=== PATIENT | female | born 1985 | race African-American/Black ===

== ENCOUNTER 2023-01-29 12:28 | Emergency (ER) | payer OTHER, SELFPAY ==
[2023-01-29 12:36] VITALS: BP 138/85; PULSE 115; RESP 18; TEMP 36.4; O2SAT 100
--- NOTE | 2023-01-29 12:52 | ECG_ITS ---
Measurements Intervals [place] Rate: 99 P: 50 SD: 152 QRS: 52 QRSD: 93 T: 23 QT: 351 QTc: 452 Interpretive Statements SINUS RHYTHM NORMAL ELECTROCARDIOGRAM NO PREVIOUS ECG AVAILABLE FOR COMPARISON Electronically Signed On 01-29-2023 15:24:05 [employer] by Nadeem Norris M.D.
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
--- NOTE | 2023-01-29 13:16 | PC.NURSE ---
Pt mother at bedside after pt approved of the visitor
[2023-01-29 13:27] LABS: Appearance Urine Clear (Clear); Bilirubin Urine Negative (Negative); Blood Urine Negative (Negative); Color Urine Yellow (Yellow); Glucose Urine UA Negative (Negative); Ketones Urine Negative (Negative); Leukocyte Esterase Ur Negative LEU/UL (Negative); Nitrate Urine Negative (Negative); Protein Urine Negative (Negative); Specific Grav Ur 1.016 (1.001-1.035); Urobilinogen Urine 0.2 mg/dL (<2.0); pH Urine 5.5 (5.0-9.0)
[2023-01-29 13:31] LABS: Add Urine Microscopic? NO
[2023-01-29 13:31] LABS: Basophils Percent Auto 0.5 % (0.2-1.2); Eosinophils Absolute Auto 0.1 K/mm3 (0-0.3); Eosinophils Percent Auto 3.2 % (0-4.4); Hematocrit 38.1 % (37.0-47.0); Hemoglobin 12.2 g/dL (12.0-15.0); Lymphocytes Absolute Auto 1.75 K/mm3 (0.9-3.2); Lymphocytes Percent Auto 46.1 % (18.3-44.2); Mean Corpuscular Hemoglobin 28.6 pg (26-34); Mean Corpuscular Volume 89.4 fl (80-100); Mean Platelet Volume 10.5 fl (7.4-10.4); Monocytes Absolute Auto 0.3 K/mm3 (0.1-0.6); Monocytes Percent Auto 8.4 % (2.6-8.5); Neutrophils Absolute Auto 1.6 K/mm3 (1.3-6.7); Neutrophils Percent Auto 41.8 % (45.5-73.1); Platelet Count Result 240 k/mm3 (150-375); Red Blood Count 4.26 M/mm3 (4.2-5.4); Red Cell Distribution Width 12.8 % (11.5-14.5); White Blood Count 3.8 K/mm3 (4.5-10.0)
[2023-01-29 13:36] LABS: Acetaminophen < 10 ug/mL (10-30); Ethanol 10 mg/dL (<10); Salicylate < 1.0 mg/dL (2-20)
[2023-01-29 13:37] LABS: Alanine Aminotransferase 12 U/L (6-35); Albumin Level 4.1 g/dL (3.5-5.1); Alkaline Phosphatase 54 U/L (38-126); Anion Gap 9 mmol/L (8-16); Aspartate Amino Transferase 25 U/L (14-36); Bilirubin,Total 0.3 mg/dL (0.2-1.3); Blood Urea Nitrogen 10 mg/dL (7-17); Calcium 9.1 mg/dL (8.4-10.2); Carbon Dioxide 25 mmol/L (22-30); Chloride 106 mmol/L (98-107); Estimated Glomerular Filt Rate > 60; Glucose 94 mg/dL (65-110); Potassium 3.6 mmol/L (3.4-5.0); Sodium 140 mmol/L (137-145)
[2023-01-29 13:46] LABS: Amphetamine Screen Urine Negative (Negative); Barbiturate Screen Urine Negative (Negative); Benzodiazepines Screen Urine Positive (Negative); Cannabinoid Screen Urine Negative (Negative); Methadone Screen Urine Negative (Negative); Opiate Screen Urine Positive (Negative); Phencyclidine Screen Urine Negative (Negative)
[2023-01-29 14:10] LABS: Influenza A QL RT-PCR Negative (Negative); Influenza B QL RT-PCR Negative (Negative); RSV RNA, RT-PCR Negative (Negative); SARS-CoV-2 RNA PCR Negative (Negative)
[2023-01-29 15:06] LABS: Cocaine Screen Urine Negative (Negative)
--- NOTE | 2023-01-29 16:00 | PC.NURSE ---
Donaldo with Poison control was contacted.
--- NOTE | 2023-01-29 16:25 | PC.NURSE ---
pt and mother angry about delay in Crisis arriving. quite argumentative, unwilling to listen. pt never stated that she was suicidal or having thoughts of self harm. both mother and pt gave ultimatum, that they would walk out in 10 mins if Crisis were not here
--- NOTE | 2023-01-29 16:25 | PC.NURSE ---
Pt out in hallway yelling at staff to receive her belongings and let her leave. This RN was able to redirect pt back into room and inform her of our protocol. Pt states she did not take any medicines, has no thoughts of SI, and did not call her sister this morning. made aware.
--- NOTE | 2023-01-29 16:29 | PC.NURSE ---
Pt mother, Haley, called per pt request to come back to room.
--- NOTE | 2023-01-29 16:33 | PC.NURSE ---
Vickie with Crisis called back for information on pt for her evaluation from representatives. States they will be out shortly
--- NOTE | 2023-01-29 17:28 | PC.NURSE ---
both mother and pt seen ambulating out of ED, provider made aware. security calling [facility] to inform of elopement.
--- NOTE | 2023-01-29 18:02 | PC.NURSE ---
Crisis representatives created a safety plan with patient
[2023-01-29 18:14] VITALS: BP 123/88; PULSE 115; RESP 20; TEMP 37.1; O2SAT 100
[2023-02-02 08:22] LABS: Gabapentin <0.5 mcg/mL
== END 2023-01-29 18:30 | disposition home or self-care (01) ==
PROVIDERS: Emergency Provider Student in an Organized Health Care Education/Training Program
DX: F32.A Depression, unspecified (principal); Z11.52 Encounter for screening for COVID-19
CPT/HCPCS: 36415; 80053; 80171; 80307; 81003; 81025; 84443; 85025; 87637; 93005; 99284

== ENCOUNTER 2024-06-15 16:20 | Outpatient (CLI) | payer OTHER, SELFPAY ==
--- OUTSIDE RECORDS SUMMARY | 2024-06-15 16:27 | XMS_ITS | Data Portability ---
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 Plan of Treatment Reminders Order Date Submit Date Provider Last Modified By Organization Details Last Modified Time Details Appointments None record ed. Lab urinal ysis, dipsti ck 2023 024 [email or web address] In-Office Order, Internal Use Only DO Not Attach Compendium DO Not Attach Compendium, Do Not Delete/merge, [id number] 4 15:03:35 aneupl oidy risk and X & Y analys is, chromo some specif ic circul ating cell free (CCF) DNA, matern al serum 2023 024 TERRIE [facility], [address], [place], [address], 4 16:08:12 urinal ysis, dipsti ck 2023 024 [email or web address] In-Office Order, Internal Use Only DO Not Attach Compendium DO Not Attach Compendium, Do Not Delete/merge, [id number] 4 14:42:10 glucos e tolera nce test, post-5 0G, 1-hour 2023 024 TERRIE [facility], [address], [place], [address], 4 11:15:03 CBC w/ auto diff 2023 024 TERRIE [facility], [address], [place], [address], 4 11:15:03 cytolo gy report , thin prep, smear or scrapi ng, cervic al or vagina l 2023 024 TERRIE [facility], [address], [place], [address], 4 07:16:02 hemogl obin (Hb) electr ophore sis, blood 2023 024 [facility], [address] [facility], [place], [address], 4 14:59:45 HIV 1 + 2, meanin gful use set 2023 024 [email or web address] [facility], [address] [facility], [place], [address], 4 09:50:13 varice lla zoster virus IgG Ab, QN, IA, serum 2023 024 [facility], [address] [facility], [place], [address], 4 14:59:45 urinal ysis comple te, reflex cultur e 2023 024 [facility], [address] [facility], [place], [address], 4 14:59:46 drug screen , urine 2023 024 [facility], [address], [place], [address], 4 14:59:46 CFTR gene mutati ons found, blood or tissue 2023 024 [email or web address] [facility], [address] [facility], [place], [address], 4 09:50:01 Hepati tis C IgG Ab, qual, serum 2023 024 [facility], [address] [facility], [facility] [address], [place], [address], 4 14:59:46 prenat al panel 2023 024 [facility], [address] [facility], [facility] [address], [place], [address], 4 14:59:47 HCG, intact + beta subuni t, quant, serum or plasma 2023 024 TERRIE [facility], [address], [place], [address], 4 11:16:50 TSH, serum or plasma 2021 022 TERRIE [facility], [address] [facility], [facility] [address], [place], [address], 2 20:08:39 CBC 2021 022 TERRIE [facility], [address] [facility], [facility] [address], [place], [address], 2 20:08:38 lipid panel, serum 2021 022 TERRIE [facility], [address] [facility], [address], [place], [address], 2 20:08:37 CMP, serum or plasma 2021 022 TERRIE [facility], [address] [facility], [address], [place], [address], 2 20:08:38 HbA1c (hemog lobin A1c), blood 2021 TERRIE [facility], [address] [facility] [address], [place], [address], 20:08:40 Referral None record ed. Procedures None record ed. Surgeries None record ed. Imaging None record ed. Medication Orders Prenat al 28 mg iron-8 00 mcg tablet 2023 024 [email or web address] [facility] #[id number], [address], [place], [address], 4 13:59:28 gabape ntin 300 mg capsul e 2021 [facility] #[id number], [address], [place], [id number], 4 10:11:41 cyclob enzapr ine 10 mg tablet 2021 [facility] #[id number], [address], [place], [id number], 4 10:11:02 tramad ol 50 mg tablet 2021 [facility] #[id number], [address], [place], [id number], 10:58:48 Patient TargetsNo targets recorded. Patient Instructions Encounter Date Encounter Id Patient Instructions Last Modified By Organization Details Last Modified Time 11/11/2021 [id number] When You Want to Lose Weight: Care Instructions balbarcha Not available 11/11/2021 10:55:58 refused flu vaccine F/U with pain management balbarcha Not available 11/11/2021 10:54:15 12/30/2021 [id number] influenza (flu) vaccine: care instructions balbarcha Not available 12/30/2021 14:22:04 04/20/2023 [id number] After Age 35: Care Instructions [email or web address] Not available 04/20/2023 13:25:55 04/29/2023 [id number] A healthy lifestyle: care instructions thu Not available 04/29/2023 14:42:35 05/19/2023 [id number] After Age 35: Care Instructions thu Not available 05/19/2023 15:03:34 Reason for Referral None Reported. Results Created Date Observation Date Name Description Value Unit Range Abnormal Flag Note LastModifiedBy Organization Detail LastModifiedTime 10/21/1910/21/2021 BACTE RIAL VAGIN OSIS, RIANA atopobium vaginae Low - 0 score Not Available [facility] ([facility]) [address], [place], [address], 10/22/2021 07:12:52 10/21/1910/21/2021 BACTE RIAL VAGIN OSIS, RIANA bvab 2 Low - 0 score Not Available [facility] ([facility]) [address], [place], [address], 10/22/2021 07:12:52 10/21/1910/21/2021 BACTE RIAL VAGIN OSIS, RIANA megasphaera 1 Low - 0 score Calcu late total score by waldo kowalski the 3 indiv idual bacte rial vagin osis (BV) marke r score s toget her. Total score is inter prete d as follo ws: Total score 0-1: Indic ates the absen ce of BV. Total score 2: Indet ermin ate for BV. Addit ional clini alexys data shoul d be evalu ated to estab corbin a diagn osis. Total score 3-6: Indic ates the prese nce of BV. This test was devel oped and its perfo rmanc e krysten cteri stics deter mined by [facility]. It has not been clear ed or appro geraldine by the Food and Drug Admin istra tion. Not Available [facility] ([facility]) [address], [place], [address], 10/22/2021 07:12:52 10/21/19 10/21/2021 C ALBIC ANS + C GLABR KATRIN, RIANA trey albicans, RIANA Negati ve negati ve Not Available [facility] ([facility]) [address], [place], [address], 10/22/2021 07:12:53 10/21/19 22 10/21/2021 C ALBIC ANS + C GLABR KATRIN, RIANA trey glabrata, RIANA Negati ve negati ve Not Available [facility] ([facility]) [address], [place], [address], 10/22/2021 07:12:53 10/21/19 22 10/22/2021 URINE CULTU RE, ROUTI NE urine culture, routine Final report Not Available [facility] ([facility]) [address], [place], [address], 10/22/2021 07:12:54 10/21/19 22 10/22/2021 URINE CULTU RE, LUPEI NE result 1 No growth Not Available [facility] ([facility]) [address], [place], [address], 10/22/2021 07:12:54 10/21/19 22 10/20/2021 urina lysis , dipst ick Leukocytes Negati ve Not Available In-Office Order Internal Use Only DO Not Attach Compendium DO Not Attach Compendium, Do Not Delete/merge, [id number] 10/20/2021 15:28:06 10/21/19 22 10/20/2021 urina lysis , dipst ick Nitrite negati ve Not Available In-Office Order Internal Use Only DO Not Attach Compendium DO Not Attach Compendium, Do Not Delete/merge, [id number] 10/20/2021 15:28:10/21/19 22 10/20/2021 urina lysis , dipst ick Urobilinogen .2 Not Available In-Of fice Order Internal Use Only DO Not Attach Compendium DO Not Attach Compendium, Do Not Delete/merge, [id number] 10/20/2021 15:28:10/21/19 22 10/20/2021 urina lysis , dipst ick Protein Negati ve Not Available In-Office Order Internal Use Only DO Not Attach Compendium DO Not Attach Compendium, Do Not Delete/merge, 10/20/2021 15:28:10/21/19 22 10/20/2021 urina lysis , dipst ick pH 7.5 Not Available In-Office Order Internal Use Only DO Not Attach Compendium DO Not Attach Compendium, Do Not Delete/merge, 10/20/2021 15:28:10/21/19 22 10/20/2021 urina lysis , dipst ick Blood Non-He molyze d: Trace Not Available In-Office Order Internal Use Only DO Not Attach Compendium DO Not Attach Compendium, Do Not Delete/merge, 10/20/2021 15:28:10/21/19 22 10/20/2021 urina lysis , dipst ick Specific Lorane 1.025 Not Available In-Off ice Order Internal Use Only DO Not Attach Compendium DO Not Attach Compendium, Do Not Delete/merge, 10/20/2021 15:28:10/21/19 22 10/20/2021 urina lysis , dipst ick Ketone Trace Not Available In-Office Order Internal Use Only DO Not Attach Compendium DO Not Attach Compendium, Do Not Delete/merge, 10/20/2021 15:28:10/21/19 22 10/20/2021 urina lysis , dipst ick Bilirubin Negati ve Not Available In-Office Order Internal Use Only DO Not Attach Compendium DO Not Attach Compendium, Do Not Delete/merge, 10/20/2021 15:28:10/21/19 22 10/20/2021 urina lysis , dipst ick Glucose Negati ve Not Available In-Office Order Internal Use Only DO Not Attach Compendium DO Not Attach Compendium, Do Not Delete/merge, 10/20/2021 15:28:06 11/12/19 22 11/12/2021 LIPID PANEL cholesterol, total 173 mg/dL 100-19 9 Not Available [facility] [address] [place], [address], 11/14/2021 20:08:37 11/12/19 22 11/12/2021 LIPID PANEL triglyceride s 104 mg/dL 0-149 Not Available [facility] [address] [place], [address], 11/14/2021 20:08:37 11/12/19 22 11/12/2021 LIPID PANEL HDL cholesterol 44 mg/dL >39 Not Available [facility] [address] [place], [address], 11/14/2021 20:08:37 11/12/19 22 11/12/2021 LIPID PANEL VLDL cholesterol alexys 19 mg/dL 5-40 Not Available [facility] [address] [place], [address], 11/14/2021 20:08:37 11/12/19 22 11/12/2021 LIPID PANEL LDL chol calc ([facility]) 110 mg/dL 0-99 above high normal Not Available [facility] [address] [place], [address], 11/14/2021 20:08:37 11/12/19 22 11/12/2021 CBC+P LATEL ET+HE Mariano Moser WBC 5.2 x10e3 /uL 3.4-10 .8 Not Available [facility] [address] [place], [address], 11/14/2021 20:08:38 11/12/19 22 11/12/2021 CBC+P LATEL ET+HE Mariano HERNANDEZ W RBC 4.57 x10e6 /uL 3.77-5 .28 Not Available [facility] [address] [place], [address], 11/14/2021 20:08:38 11/12/19 22 11/12/2021 CBC+P LATEL ET+HE M REVIE W hemoglobin 13.5 g/dL 11.1-1 5.9 Not Available [facility] [address] [place], [address], 11/14/2021 20:08:38 11/12/19 22 11/12/2021 CBC+P LATEL ET+HE M REVIE W hematocrit 41.6 % 34.0-4 6.6 Not Available [facility] [address] [place], [address], 11/14/2021 20:08:38 11/12/19 22 11/12/2021 CBC+P LATEL ET+HE M REVIE W MCV 91 fL 79-97 Not Available [facility] [address] [place], [address], 11/14/2021 20:08:38 11/12/19 22 11/12/2021 CBC+P LATEL ET+HE M REVIE W MCH 29.5 pg 26.6-3 3.0 Not Available [facility] [address] [place], [address], 11/14/2021 20:08:38 11/12/19 22 11/12/2021 CBC+P LATEL ET+HE M REVIE W MCHC 32.5 g/dL 31.5-3 5.7 Not Available [facility] [address] [place], [address], 11/14/2021 20:08:38 11/12/19 22 11/12/2021 CBC+P LATEL ET+HE M REVIE W RDW 13.4 % 11.7-1 5.4 Not Available [facility] [address] [place], [address], 11/14/2021 20:08:38 11/12/19 22 11/12/2021 CBC+P LATEL ET+HE M REVIE W platelets 230 x10e3 /uL 150-45 0 Not Available [facility] [address] [place], [address], 11/14/2021 20:08:38 11/12/19 22 11/12/2021 CBC+P LATEL ET+HE M REVIE W neutrophils 54 % notest ab. Not Available [facility] [address] [place], [address], 11/14/2021 20:08:38 11/12/19 22 11/12/2021 CBC+P LATEL ET+HE M REVIE W lymphs 36 % notest ab. Not Available [facility] [address] [place], [address], 11/14/2021 20:08:38 11/12/19 22 11/12/2021 CBC+P LATEL ET+HE M REVIE W monocytes 9 % notest ab. Not Available [facility] [address] [place], [address], 11/14/2021 20:08:38 11/12/19 22 11/12/2021 CBC+P LATEL ET+HE M REVIE W eos 1 % notest ab. Not Available [facility] [address] [place], [address], 11/14/2021 20:08:38 11/12/19 22 11/12/2021 CBC+P LATEL ET+HE M REVIE W basos 0 % notest ab. Not Available [facility] [address] [place], [address], 11/14/2021 20:08:38 11/12/19 22 11/12/2021 CBC+P LATEL ET+HE M REVIE W neutrophils absolute 2.8 x10e3 /uL 1.4-7. 0 Not Available [facility] [address] [place], [address], 11/14/2021 20:08:38 11/12/19 22 11/12/2021 CBC+P LATEL ET+HE M REVIE W lymphs (absolute) 1.9 x10e3 /uL 0.7-3. 1 Not Available [facility] [address] [place], [address], 11/14/2021 20:08:38 11/12/19 22 11/12/2021 CBC+P LATEL ET+HE M REVIE W monocytes(ab solute) 0.5 x10e3 /uL 0.1-0. 9 Not Available [facility] [address] [place], [address], 11/14/2021 20:08:38 11/12/19 22 11/12/2021 CBC+P LATEL ET+HE M REVIE W eos (absolute value) 0.1 x10e3 /uL 0.0-0. 4 Not Available [facility] [address] [place], [address], 11/14/2021 20:08:38 11/12/19 22 11/12/2021 CBC+P LATEL ET+HE M REVKIRA W baso(absolut e) 0.0 x10e3 /uL 0.0-0. 2 Not Available [facility] [address] [place], [address], 11/14/2021 20:08:38 11/12/19 22 11/12/2021 CBC+P LATEL ET+HE M REVIE W RBC comment RBC's appear normal . Not Available [facility] [address] [place], [address], 11/14/2021 20:08:38 11/12/19 22 11/12/2021 CBC+P LATEL ET+HE M REVIE W platelet comment Adequa te adequa te Not Available [facility] [address] [place], [address], 11/14/2021 20:08:38 11/12/19 22 11/12/2021 COMP. METAB OLIC PANEL (14) glucose 91 mg/dL 70-99 Ple ase note refer ence inter jessa bonds e Not Available [facility] [address] [place], [address], 11/14/2021 20:08:38 11/12/19 22 11/12/2021 COMP. METAB OLIC PANEL (14) BUN 7 mg/dL 6-20 Not Available [facility] [address] [place], [address], 11/14/2021 20:08:38 11/12/19 22 11/12/2021 COMP. METAB OLIC PANEL (14) creatinine 0.89 mg/dL 0.57-1 .00 Not Available [facility] [address] [place], [address], 11/14/2021 20:08:38 11/12/19 22 11/12/2021 COMP. METAB OLIC PANEL (14) eGFR 86 mL/mi n/1.7 3 >59 Not Available [facility] [address] [place], [address], 11/14/2021 20:08:38 11/12/19 22 11/12/2021 COMP. METAB OLIC PANEL (14) BUN/creatini ne ratio 8 9-23 below low normal Not Available [facility] [address] [place], [address], 11/14/2021 20:08:38 11/12/19 22 11/12/2021 COMP. METAB OLIC PANEL (14) sodium 142 mmol/ L 134-14 4 Not Available [facility] [address] [place], [address], 11/14/2021 20:08:38 11/12/19 22 11/12/2021 COMP. METAB OLIC PANEL (14) potassium 4.1 mmol/ L 3.5-5. 2 Not Available [facility] [address] [place], [address], 11/14/2021 20:08:38 11/12/19 22 11/12/2021 COMP. METAB OLIC PANEL (14) chloride 105 mmol/ L 96-106 Not Available [facility] [address] [place], [address], 11/14/2021 20:08:38 11/12/19 22 11/12/2021 COMP. METAB OLIC PANEL (14) carbon dioxide, total 26 mmol/ L 20-29 Not Available [facility] [address] [place], [address], 11/14/2021 20:08:38 11/12/19 22 11/12/2021 COMP. METAB OLIC PANEL (14) calcium 9.0 mg/dL 8.7-10 .2 Not Available [facility] [address] [place], [address], 11/14/2021 20:08:38 11/12/19 22 11/12/2021 COMP. METAB OLIC PANEL (14) protein, total 6.6 g/dL 6.0-8. 5 Not Available [facility] [address] [place], [address], 11/14/2021 20:08:38 11/12/19 22 11/12/2021 COMP. METAB OLIC PANEL (14) albumin 4.2 g/dL 3.8-4. 8 Not Available [facility] [address] [place], [address], 11/14/2021 20:08:38 11/12/19 22 11/12/2021 COMP. METAB OLIC PANEL (14) globulin, total 2.4 g/dL 1.5-4. 5 Not Available [facility] [address] [place], [address], 11/14/2021 20:08:38 11/12/19 22 11/12/2021 COMP. METAB OLIC PANEL (14) A/G ratio 1.8 1.2-2. 2 Not Available [facility] [address] [place], [address], 11/14/2021 20:08:38 11/12/19 22 11/12/2021 COMP. METAB OLIC PANEL (14) bilirubin, total 0.4 mg/dL 0.0-1. 2 Not Available [facility] [address] [place], [address], 11/14/2021 20:08:38 11/12/19 22 11/12/2021 COMP. METAB OLIC PANEL (14) alkaline phosphatase 58 IU/L 44-121 Not Available [facility] [address] [place], [address], 11/14/2021 20:08:38 11/12/19 22 11/12/2021 COMP. METAB OLIC PANEL (14) AST (SGOT) 23 IU/L 0-40 Not Available [facility] [address] [place], [address], 11/14/2021 20:08:38 11/12/19 22 11/12/2021 COMP. METAB OLIC PANEL (14) ALT (SGPT) 8 IU/L 0-32 Not Available [facility] [address] [place], [address], 11/14/2021 20:08:38 11/12/19 22 11/14/2021 THYRO ID STIMU LATIN G HORMO NE TSH-icma 0.55 uu/mL Refer ence Range : Non-P regna nt Adult 0.450 -4.50 0 Pregn cathy First Trime ster 0.100 -4.00 0 Secon d Trime ster 0.200 -4.00 0 Third Trime ster 0.300 -4.50 0 Not Available [facility] [address] [facility], [place], [address], 11/14/2021 20:08:39 11/12/19 22 11/12/2021 HEMOG LOBIN A1C hemoglobin A1C 6.0 % 4.8-5. 6 above high normal Predi abete s: 5.7 - 6.4 Diabe sil: >6.4 Glyce jamir contr ol for adult s with diabe sil: <7.0 Not Available [facility] [address] [facility], [place], [address], 11/14/2021 20:08:40 04/20/19 24 04/21/2023 IGP,C TNGTV ,APT HPV,R FX16/ 18,45 HPV aptima Negati ve negati ve This nucle ic acid ampli ficat ion test detec ts fourt een high- risk HPV types (16,1 8,31, 33,35 ,39,4 5,51, 52,56 ,58,5 9,66, 68) witho ut diffe renti ation . Not Available [facility] ([facility]) [address] [place], [address], 04/23/2023 07:16:02 04/20/19 24 04/21/2023 IGP,C TNGTV ,APT HPV,R FX16/ 18,45 chlamydia, nuc. acid amp Negati ve negati ve Not Available [facility] ([facility]) [address] [place], [address], 04/23/2023 07:16:02 04/20/19 24 04/21/2023 IGP,C TNGTV ,APT HPV,R FX16/ 18,45 gonococcus, nuc. acid amp Negati ve negati ve Not Available [facility] ([facility]) [address] [place], [address], 04/23/2023 07:16:02 04/20/19 24 04/21/2023 IGP,C TNGTV ,APT HPV,R FX16/ 18,45 trich vag by RIANA Negati ve negati ve Not Available [facility] ([facility]) [address], [place], [address], 04/23/2023 07:16:02 04/20/19 24 04/22/2023 IGP,C TNGTV ,APT HPV,R FX16/ 18,45 diagnosis: Linn CASTRO FOR INTRA EPITH ELIAL LESIO N OR ALE CORTES . Not Available [facility] ([facility]) [address], [place], [address], 04/23/2023 07:16:02 04/20/19 24 04/22/2023 IGP,C TNGTV ,APT HPV,R FX16/ 18,45 specimen adequacy: Linn carmona Satis factatmie gabriel for evalu ation . Endoc ervic al and/o r squam ous metap lasti c cells (endo cervi alexys compo nent) are prese nt. Not Available [facility] ([facility]) [address], [place], [address], 04/23/2023 07:16:02 04/20/19 24 04/22/2023 IGP,C TNGTV ,APT HPV,R FX16/ 18,45 clinician provided ICD10: Linn carmona Z34.9 0 Z01.4 19 Not Available [facility] ([facility]) [address], [place], [address], 04/23/2023 07:16:02 04/20/19 24 04/22/2023 IGP,C TNGTV ,APT HPV,R FX16/ 18,45 performed by: Linn alan, Ramírez carmona (ASCP ) Not Available [facility] ([facility]) [address] [place], [address], 04/23/2023 07:16:02 03/12/20 24 04/22/2023 IGP,C TNGTV ,APT HPV,R FX16/ 18,45 . . Not Available [facility] ([facility]) [address], [place], [address], 04/23/2023 07:16:02 04/20/19 24 04/22/2023 IGP,C TNGTV ,APT HPV,R FX16/ 18,45 note: Commen t The Pap smear is a scree candace test desig kaylee to aid in the detec tion of chary ligna nt and malig nant condi tions of the uteri ne cervi x. It is not a diagn ostic proce dure and shoul d not be used as the sole means of detec ting cervi alexys cance r. Both false -posi tive and false -nega tive repor ts do occur . Not Available [facility] ([facility]) [address], [place], [address], 04/23/2023 07:16:02 04/20/19 24 04/22/2023 IGP,C TNGTV ,APT HPV,R FX16/ 18,45 test methodology: Commen t This liqui d based ThinP rep(R ) pap test was scree kaylee with the use of an image guide d jaqueline allen. Not Available [facility] ([facility] [address], [place], [address], 04/23/2023 07:16:02 04/20/19 24 04/22/2023 IGP,C TNGTV ,APT HPV,R FX16/ 18,45 HPV genotype reflex Commen t Crite storm not met, HPV Genot ype not perfo rmed. Not Available [facility] ([facility]) [address], [place], [address], 04/23/2023 07:16:02 04/20/19 24 04/21/2023 HGB FRACT IONAT ION CASCA DE HGB F 0.0 % 0.0-2. 0 Not Available [facility] ([facility]) [address], [place], [address], 05/27/2023 07:17:21 04/20/19 24 04/21/2023 HGB FRACT IONAT ION CASCA DE HGB A 97.4 % 96.4-9 8.8 Not Available [facility] ([facility]) [address], [place], [address], 05/27/2023 07:17:21 04/20/19 24 04/21/2023 HGB FRACT IONAT ION CASCA DE HGB A2 2.6 % 1.8-3. 2 Not Available [facility] ([facility]) [address], [place], [address], 05/27/2023 07:17:21 04/20/19 24 04/21/2023 HGB FRACT IONAT ION CASCA DE HGB S 0.0 % 0.0 Not Available [facility] ([facility]) [address], [place], [address], 05/27/2023 07:17:21 04/20/1904/21/2023 HGB FRACT IONAT ION CASCA DE interpretati on: Commen t Marisol l hemog lobin prese nt; no hemog lobin varia nt or beta thala ssemi a ident ified . Note: Alpha thala ssemi a may not be detec jimi by the Hgb Fract ionat ion [place] panel . If alpha thala ssemi a is suspe cted, [facility] offer s Alpha -Thal assem ia DNA Tiburcio sis (#[id number]). Not Available [facility] ([facility]) [address], [place], [address], 05/27/2023 07:17:21 04/20/19 24 04/21/2023 INTER PRETA TION: interpretati on: Commen t Not infec jimi with HCV unles s early or acute infec tion is suspe cted (whic h may be delay ed in an immun ocomp romis ed indiv idual ), or other evide nce exist s to indic ate HCV infec tion. Not Available [facility] ([facility]) [address], [place], [address], 05/27/2023 07:17:22 04/20/19 24 04/20/2023 PREGN CATHY, INITI AL SCREE N WBC 4.7 x10e3 /uL 3.4-10 .8 Not Available [facility] ([facility]) [address] [facility], [place], [address], 05/27/2023 07:17:23 04/20/19 24 04/20/2023 PREGN CATHY, INITI AL SCREE N RBC 4.10 x10e6 /uL 3.77-5 .28 Not Available [facility] ([facility]) [address] [facility], [place], [address], 05/27/2023 07:17:23 04/20/19 24 04/20/2023 PREGN CATHY, INITI AL SCREE N hemoglobin 11.8 g/dL 11.1-1 5.9 Not Available [facility] ([facility]) [address], [place], [address], 05/27/2023 07:17:23 04/20/19 24 04/20/2023 PREGN CATHY, INITI AL SCREE N hematocrit 36.1 % 34.0-4 6.6 Not Available [facility] ([facility] [address], [place], [address], 05/27/2023 07:17:23 04/20/19 24 04/20/2023 PREGN CATHY, INITI AL SCREE N MCV 88 fL 79-97 Not Available [facility] ([facility] [address] [place], [address], 05/27/2023 07:17:23 04/20/19 24 04/20/2023 PREGN CATHY, INITI AL SCREE N MCH 28.8 pg 26.6-3 3.0 Not Available [facility] ([facility] [address], [place], [address], 05/27/2023 07:17:23 04/20/19 24 04/20/2023 PREGN CATHY, INITI AL SCREE N MCHC 32.7 g/dL 31.5-3 5.7 Not Available [facility] ([facility] [address], [place], [address], 05/27/2023 07:17:23 04/20/19 24 04/20/2023 PREGN CATHY, INITI AL SCREE N RDW 15.9 % 11.7-1 5.4 above high normal Not Available [facility] ([facility] [address] [place], [address], 05/27/2023 07:17:23 04/20/19 24 04/20/2023 PREGN CATHY, INITI AL SCREE N platelets 260 x10e3 /uL 150-45 0 Not Available [facility] ([facility] [address] [place], [address], 05/27/2023 07:17:23 04/20/19 24 04/20/2023 PREGN CATHY, INITI AL SCREE N neutrophils 62 % notest ab. Not Available [facility] ([facility] [address] [place], [address], 05/27/2023 07:17:23 04/20/19 24 04/20/2023 PREGN CATHY, INITI AL SCREE N lymphs 29 % notest ab. Not Available [facility] ([facility]) [address] [place], [address], 05/27/2023 07:17:23 04/20/19 24 04/20/2023 PREGN CATHY, INITI AL SCREE N monocytes 8 % notest ab. Not Available [facility] ([facility]) [address] [facility], [place], [address], 05/27/2023 07:17:23 04/20/19 24 04/20/2023 PREGN CATHY, INITI AL SCREE N eos 1 % notest ab. Not Available [facility] ([facility]) [address] [facility], [place], [address], 05/27/2023 07:17:23 04/20/19 24 04/20/2023 PREGN CATHY, INITI AL SCREE N basos 0 % notest ab. Not Available [facility] ([facility]) [address] [facility], [place], [address], 05/27/2023 07:17:23 04/20/19 24 04/20/2023 PREGN CATHY, INITI AL SCREE N neutrophils (absolute) 2.9 x10e3 /uL 1.4-7. 0 Not Available [facility] ([facility]) [address] [place], [address], 05/27/2023 07:17:23 04/20/19 24 04/20/2023 PREGN CATHY, INITI AL SCREE N lymphs (absolute) 1.3 x10e3 /uL 0.7-3. 1 Not Available [facility] ([facility]) [address] [place], [address], 05/27/2023 07:17:23 04/20/19 24 04/20/2023 PREGN CATHY, INITI AL SCREE N monocytes(ab solute) 0.4 x10e3 /uL 0.1-0. 9 Not Available [facility] ([facility]) [address] [place], [address], 05/27/2023 07:17:23 04/20/19 24 04/20/2023 PREGN CATHY, INITI AL SCREE N eos (absolute) 0.0 x10e3 /uL 0.0-0. 4 Not Available [facility] ([facility]) [address] [facility], [place], [address], 05/27/2023 07:17:23 04/20/19 24 04/20/2023 PREGN CATHY, INITI AL SCREE N baso (absolute) 0.0 x10e3 /uL 0.0-0. 2 Not Available [facility] ([facility]) [address] [facility], [place], [address], 05/27/2023 07:17:23 04/20/19 24 04/20/2023 PREGN CATHY, INITI AL SCREE N immature granulocytes 0 % notest ab. Not Available [facility] ([facility]) [address] [facility], [place], [address], 05/27/2023 07:17:23 04/20/19 24 04/20/2023 PREGN CATHY, INITI AL SCREE N immature grans (abs) 0.0 x10e3 /uL 0.0-0. 1 Not Available [facility] ([facility]) [address] [facility], [place], [address], 05/27/2023 07:17:23 04/20/19 24 04/21/2023 PREGN CATHY, INITI AL SCREE N HBsAg screen Negati ve negati ve Not Available [facility] ([facility]) [address] [facility], [place], [address], 05/27/2023 07:17:23 04/20/19 24 04/21/2023 PREGN CATHY, INITI AL SCREE N HCV Ab Non Reacti ve nonrea ctive Not Available [facility] ([facility]) [address] [place], [address], 05/27/2023 07:17:23 04/20/19 24 04/21/2023 PREGN CATHY, INITI AL SCREE N RPR Non Reacti ve nonrea ctive Not Available [facility] ([facility]) [address] [place], [address], 05/27/2023 07:17:23 04/20/19 24 04/21/2023 PREGN CATHY, INITI AL SCREE N rubella antibodies, IgG 2.06 index immune >0.99 Non-i mmune <0.90 Equiv ocal 0.90 - 0.99 Immun e >0.99 Not Available [facility] ([facility]) [address] [facility], [place], [address], 05/27/2023 07:17:23 04/20/19 24 04/21/2023 PREGN CATHY, INITI AL SCREE N ABO grouping A Not Available [facility] ([facility]) [address], [place], [address], 05/27/2023 07:17:23 04/20/19 24 04/21/2023 PREGN CATHY, INITI AL SCREE N Rh factor Positi ve Pleas e note: Prior recor ds for this patie nt's ABO / Rh type are not avail able for addit ional verif icati on. Not Available [facility] ([facility]) [address] [facility], [place], [address], 05/27/2023 07:17:23 04/20/19 24 04/21/2023 PREGN CATHY, INITI AL SCREE N antibody screen Negati ve negati ve Not Available [facility] ([facility]) [address] [facility], [place], [address], 05/27/2023 07:17:23 04/20/19 24 04/21/2023 PREGN CATHY, INITI AL SCREE N HIV Ab/P24 Ag screen Non Reacti ve nonrea ctive HIV Negat matthew HIV-1 /HIV- 2 antib odies and HIV-1 p24 antig en were NOT detec jimi. There is no labor atory evide nce of HIV infec tion. Not Available [facility] ([facility]) [address] [facility], [place], [address], 05/27/2023 07:17:23 04/20/19 24 04/21/2023 PREGN CATHY, INITI AL SCREE N specific gravity 1.022 1.005- 1.030 Not Available [facility] ([facility]) [address] [place], [address], 05/27/2023 07:17:23 04/20/19 24 04/21/2023 PREGN CATHY, INITI AL SCREE N pH 6.5 5.0-7. 5 Not Available [facility] ([facility]) [address] [place], [address], 05/27/2023 07:17:23 04/20/19 24 04/21/2023 PREGN CATHY, INITI AL SCREE N urine-color Yellow yellow Not Available [facility] ([facility] [address] [place], [address], 05/27/2023 07:17:23 04/20/19 24 04/21/2023 PREGN CATHY, INITI AL SCREE N appearance Clear clear Not Available [facility] ([facility]) [address] [place], [address], 05/27/2023 07:17:23 04/20/19 24 04/21/2023 PREGN CATHY, INITI AL SCREE N WBC esterase Negati ve negati ve Not Available [facility] ([facility]) [address] [place], [address], 05/27/2023 07:17:23 04/20/19 24 04/21/2023 PREGN CATHY, INITI AL SCREE N protein Negati ve negati ve/tra ce Not Available [facility] ([facility]) [address] [place], [address], 05/27/2023 07:17:23 04/20/19 24 04/21/2023 PREGN CATHY, INITI AL SCREE N glucose Negati ve negati ve Not Available [facility] ([facility]) [address] [place], [address], 05/27/2023 07:17:23 04/20/19 24 04/21/2023 PREGN CATHY, INITI AL SCREE N ketones Negati ve negati ve Not Available [facility] ([facility]) [address] [place], [address], 05/27/2023 07:17:23 04/20/19 24 04/21/2023 PREGN CATHY, INITI AL SCREE N occult blood Trace negati ve abnormal Not Available [facility] ([facility]) [address] [facility], [place], [address], 05/27/2023 07:17:23 04/20/19 24 04/21/2023 PREGN CATHY, INITI AL SCREE N bilirubin Negati ve negati ve Not Available [facility] ([facility]) [address] [place], [address], 05/27/2023 07:17:23 04/20/19 24 04/21/2023 PREGN CATHY, INITI AL SCREE N urobilinogen ,semi-qn 0.2 mg/dL 0.2-1. 0 Not Available [facility] ([facility]) [address] [place], [address], 05/27/2023 07:17:23 04/20/19 24 04/21/2023 PREGN CATHY, INITI AL SCREE N nitrite, urine Negati ve negati ve Not Available [facility] ([facility]) [address] [place], [address], 05/27/2023 07:17:23 04/20/19 24 04/21/2023 PREGN CATHY, INITI AL SCREE N microscopic examination See below: Micro scopi c was indic ated and was perfo rmed. Not Available [facility] ([facility]) [address] [place], [address], 05/27/2023 07:17:23 04/20/19 24 04/22/2023 PREGN CATHY, INITI AL SCREE N chlamydia trachomatis, RIANA Negati ve negati ve Not Available [facility] ([facility]) [address] [facility], [place], [address], 05/27/2023 07:17:23 04/20/19 24 04/22/2023 PREGN CATHY, INITI AL SCREE N neisseria gonorrhoeae, RIANA Negati ve negati ve Not Available [facility] ([facility]) [address] [facility], [place], [address], 05/27/2023 07:17:23 04/20/19 24 04/22/2023 PREGN CATHY, INITI AL SCREE N urine culture,pren atal, w/gbs Final report Not Available [facility] ([facility]) [address] [facility], [place], [address], 05/27/2023 07:17:23 04/20/19 24 04/21/2023 MICRO SCOPI C EXAMI NATIO N WBC None seen /hpf 0-5 Not Available [facility] ([facility]) [address], [place], [address], 05/27/2023 07:17:24 04/20/19 24 04/21/2023 MICRO SCOPI C EXAMI NATIO N RBC 0-2 /hpf 0-2 Not Available [facility] ([facility]) [address] [facility], [place], [address], 05/27/2023 07:17:24 04/20/19 24 04/21/2023 MICRO SCOPI C EXAMI NATIO N epithelial cells (non renal) 0-10 /hpf 0-10 Not Available [facility] ([facility]) [address] [facility], [place], [address], 05/27/2023 07:17:24 04/20/19 24 04/21/2023 MICRO SCOPI C EXAMI NATIO N casts None seen /lpf nonese en Not Available [facility] ([facility]) [address] [facility], [place], [address], 05/27/2023 07:17:24 04/20/19 24 04/21/2023 MICRO SCOPI C EXAMI NATIO N bacteria Few nonese en/few Not Available [facility] ([facility]) [address] [facility], [place], [address], 05/27/2023 07:17:24 04/20/19 24 04/21/2023 UA/M W/RFL X CULTU RE, ROUTI NE urinalysis reflex Commen t This speci men will not refle x to a Urine Cultu re. Not Available [facility] ([facility]) [address] [facility], [place], [address], 05/27/2023 07:17:24 04/20/19 24 05/26/2023 CYSTI C FIBRO SIS, 97 VARIA NTS ethnicity Commen t Not Provi ded Not Available [facility] ([facility]) [address] [facility], [place], [address], 05/27/2023 07:17:25 04/20/19 24 05/26/2023 CYSTI C FIBRO SIS, 97 VARIA NTS specimen type Commen t Whole Blood Not Available [facility] ([facility]) [address] [place], [address], 05/27/2023 07:17:25 04/20/19 24 05/26/2023 CYSTI C FIBRO SIS, 97 VARIA NTS indication Commen t Trista er Test / Scree candace Not Available [facility] ([facility]) [address] [place], [address], 05/27/2023 07:17:25 04/20/19 24 05/26/2023 CYSTI C FIBRO SIS, 97 VARIA NTS result: Commen t NEGAT MATTHEW Not Available [facility] ([facility]) [address] [place], [address], 05/27/2023 07:17:25 04/20/19 24 05/26/2023 CYSTI C FIBRO SIS, 97 VARIA NTS interpretati on Commen t Negat matthew Resul ts Disor ders (Gene ) Resul t Inter preta tion Cysti c fibro sis NEGAT MATTHEW This resul t reduc es, (CFTR ) but does not NM_00 0492. 4 elimi mary grace, the risk to be a trista er. Risk: At reduc ed risk for an affec jimi pregn cathy. For ethni c-spe cific risk rashad ions see Infor bandar n Table . Not Available [facility] ([facility]) [address] [facility], [place], [address], 05/27/2023 07:17:25 04/20/19 24 05/26/2023 CYSTI C FIBRO SIS, 97 VARIA NTS recommendati ons Commen t If the above resul t is posit matthew, cris ic couns lory is recom linda d to discu ss the poten tial clini alexys and/o r repro ducti ve impli catio ns, as well as recom menda tions for testi ng famil y membe rs and, when appli cable , this indiv idual 's partn er. Cris ic couns lory servi pankaj are avail able. To acces s [facility] Cris ic Couns tray ambrose e visit [email or web address] :[email or web address] [email or web address] -coun tosin kowalski or call [phone]). Not Available [facility] ([facility]) [address] [facility], [place], [address], 05/27/2023 07:17:25 04/20/19 24 05/26/2023 CYSTI C FIBRO SIS, 97 VARIA NTS additional clinicalinfo rmation Commen t Cysti c fibro sis (CF) is an autos omal reces sive disor lulu with varia ble sever ity and age at onset . Signs and sympt oms of class ic CF may inclu de eleva jimi sweat chlor calvin level s, progr essiv e lung disea se, pancr eatic insuf ficie ncy, and male infer tilit y. Sympt oms of mild CF may inclu de pancr eatic suffi cienc y. Sympt oms of CFTR- relat ed disor ders may inclu de pancr eatit is, bronc hiect asis, and isola jimi male infer tilit y due to conge nital absen ce of the vas defer ens (CBAV D). Treat ment is dieta ry and suppo rtive . Genot ype-t arget ed thera pies may be avail able for some indiv idual s. In sever peter affec jimi indiv idual s, lung trans plant ation may be indic ated. (PMID :[id number]) . Not Available [facility] ([facility]) [address] [facility], [place], [address], 05/27/2023 07:17:25 04/20/19 24 05/26/2023 CYSTI C FIBRO SIS, 97 VARIA NTS comments Commen t This inter preta tion is based on the clini alexys infor matio n provi ded and the curre nt under stand ing of the molec ular cris ics of the disor lulu(s ) teste d. Infor matio n about the disor lulu(s ) teste d is avail able at [email or web address] :[email or web address] om. Not Available [facility] ([facility]) [address] [facility], [place], [address], 05/27/2023 07:17:25 04/20/19 24 05/26/2023 CYSTI C FIBRO SIS, 97 VARIA NTS methods/limi tations Commen t Next- gener ation Seque ncing : Genom ic regio ns of inter est in the CFTR gene are selec jimi using the [employer] ience s(R) hybri dizat ion captu re metho d and seque nced via the Illum adrian(R ) next gener ation seque ncing platf orm. Seque ncing reads are align ed with the human genom e refer ence GRCh3 7/hg1 9 build . Regio ns of inter est inclu de genom ic regio ns encom passi ng targe jimi varia nts. Tiburcio tical sensi tivit y at 30X cover age is estim ated to be >99% for singl e nucle otide varia nts, >99% for inser tions /grady tions less than six base pairs and >96% for inser tions /grady tions betwe en six and forty -five base pairs . Varia nt detec tion is perfo rmed by CHARANJIT Hayes [email or web address] and in-ho use algor ithms . Confi rmato ry testi ng is done by Doris alan seque ncing . Varia nts are speci fied using the numbe ring and nomen clatu re recom linda d by the Human Genom e Varia tion Socie ty (HGVS , http: //www .hgvs .org/ ). Varia nt class ifica tion and confi rmati on are consi stent with ACMG stand ards and guide lines (Rich ards, PMID: [id number]; Lisa, PMID: [id number] 774). Tiburcio sis is restr icted to 97 targe jimi CF varia nts, liste d below . c.54- 5940_ 273+1 0250d el21k b, c.178 G>T (p.Gl u60*) , c.223 C>T (p.Ar g75*) , c.254 G>A (p.Gl y85Gl u), c.262 _263d elTT (p.Le u88Il efs*2 2), c.273 +1G>A , c.273 +3A>C , c.274 -1G>A , c.274 G>T (p.Gl u92*) , c.313 Albert (p.Il e105S erfs* 2), c.325 _327d elins G (p.Ty r109G lyfs* 4), c.349 C>T (p.Ar g117C ys), c.350 G>A (p.Ar g117H is), c.366 T>A (p.Ty r122* ), c.442 Albert (p.Il e148L eufs* 5), c.489 +1G>T , c.531 delT (p.Il e177M etfs* 12), c.532 G>A (p.Gl y178A rg), c.579 +1G>T , c.579 +5G>A , c.580 -1G>T , c.617 T>G (p.Le u206T rp), c.803 Albert (p.As n268I lefs* 17), c.805 _806d elAT (p.Il e269P rofs* 4), c.935 _937d elTCT (p.Ph e312d el), c.948 delT (p.Ph e316L eufs* 12), c.988 G>T (p.Gl y330* ), c.100 0C>T (p.Ar g334T rp), c.101 3C>T (p.Th r338I le), c.104 0G>A (p.Ar g347H is), c.104 0G>C (p.Ar g347P ro), c.105 5G>A (p.Ar g352G ln), c.[10 75C>A ;1079 C>A] (p.[G ln359 Hollie;T hr360 Hollie]) , c.115 5_115 6dupT A (p.As n386I lefs* 3), c.136 4C>A (p.Al a455G gumaro), c.143 8G>T (p.Gl y480C ys), c.147 7C>T (p.Gl n493* ), c.151 9_152 1delA TC (p.Il e507d el), c.152 1_152 3delC TT (p.Ph e508d el), c.154 5_154 6delT A (p.Ty r515* ), c.155 8G>T (p.Va l520P he), c.157 2C>A (p.Cy s524* ), c.158 5-1G> A, c.162 4G>T (p.Gl y542* ), c.164 6G>A (p.Se r549A sn), c.164 7T>G (p.Se r549A rg), c.165 2G>A (p.Gl y551A sp), c.165 4C>T (p.Gl n552* ), c.165 7C>T (p.Ar g553* ), c.167 5G>A (p.Al a559T hr), c.167 9G>C (p.Ar g560T hr), c.168 0-1G> A, c.172 1C>A (p.Pr o574H is), c.176 6+1G> A, c.176 6+5G> T, c.182 0_190 3del8 4 (p.Me t607_ Gln63 4del) , c.191 1delG (p.Gl n637H isfs* 26), c.192 3_193 1deli nsA (p.Se r641A rgfs* 5), c.197 3_198 5deli nsAGA AA (p.Ar g658L ysfs* 4), c.197 6delA (p.As n659I lefs* 4), c.201 2delT (p.Le u671* ), c.205 1_205 2deli nsG (p.Ly s684S erfs* 38), c.205 2delA (p.Ly s684A snfs* 38), c.205 2dupA (p.Gl n685T hrfs* 4), c.212 5C>T (p.Ar g709* ), c.212 8A>T (p.Ly s710* ), c.217 5dupA (p.Gl u726A rgfs* 4), c.229 0C>T (p.Ar g764* ), c.265 7+5G> A, c.266 8C>T (p.Gl n890* ), c.273 7_273 8insG (p.Ty r913* ), c.298 8G>A (p.Gl n996= ), c.298 8+1G> A, c.303 9delC (p.Ty r1014 Thrfs *9), c.306 7_307 2delA TAGTG (p.Il e1023 _Val1 024de l), c.319 6C>T (p.Ar g1066 Cys), c.326 6G>A (p.Tr p1089 *), c.327 6C>A (p.Ty r1092 *), c.327 6C>G (p.Ty r1092 *), c.330 2T>A (p.Me t1101 Hollie), c.345 4G>C (p.As p1152 His), c.347 2C>T (p.Ar g1158 *), c.348 4C>T (p.Ar g1162 *), c.352 8delC (p.Ly s1177 Serfs *15), c.353 6_353 9delC CAA (p.Th r1179 Asnfs *12), c.358 7C>G (p.Se r1196 *), c.361 1G>A (p.Tr p1204 *), c.365 9delC (p.Th r1220 Lysfs *8), c.371 2C>T (p.Gl n1238 *), c.371 8-247 7C>T, c.374 4delA (p.Ly s1250 Argfs *9), c.375 2G>A (p.Se r1251 Asn), c.376 4C>A (p.Se r1255 *), c.377 3dupT (p.Le u1258 Phefs *7), c.384 6G>A (p.Tr p1282 *), c.388 9dupT (p.Se r1297 Phefs *5), c.390 9C>G (p.As n1303 Hollie) Limit ation s: Techn ologi es used do not detec t germl ine mosai cism and do not rule out the prese nce of large chrom osoma l aberr ation s inclu ding rearr angem ents and gene fusio ns, or varia nts in regio ns or genes not inclu ded in this test, or possi ble inter /intr ageni c inter actio ns betwe en varia nts, or repea t expan sions . Varia nt class ifica tion and/o r inter preta tion may bonds e over time if more infor matio n becom es avail able. False posit matthew or false negat matthew resul ts may occur for reaso ns that inclu de: rare cris ic varia nts, sex chrom osome abnor malit ies, pseud ogene inter feren ce, blood trans fusio ns, bone marro w trans plant ation , somat ic or tissu e-spe cific mosai cism, misla beled sampl es, or violet eous repre senta tion of famil y relat ionsh ips. This test was devel oped and its perfo rmanc e krysten cteri stics deter mined by [employer] [facility]. It has not been clear ed or appro geraldine by the Food and Drug Admin istra tion. Not Available [facility] ([facility]) [address] [facility], [place], [address], 05/27/2023 07:17:25 04/20/19 24 05/26/2023 CYSTI C FIBRO SIS, 97 VARIA NTS information table Commen t Cysti c fibro sis, 97 varia nts, risk reduc tions for indiv idual s with no famil y histo ry Popul ation Detec tion rate Pre-t est Post- test trista er trista er risk risk with negat matthew resul t Afric an 81% 1 in 61 1 in 316 Ameri can Ashke nazi 97% 1 in 24 1 in 767 Jewis h 55% 1 in 94 1 in 208 Ameri can Cauca jean carlos 93% 1 in 25 1 in 343 Hispa maria e 78% 1 in 58 1 in 260 Mixed or For couns eling other ethni c purpo ses, backg round consi lulu using the ethni c backg round with the most conse rvati ve risk estim ates. Not Available [facility] ([facility]) [address], [place], [address], 05/27/2023 07:17:25 04/20/19 24 05/26/2023 CYSTI C FIBRO SIS, 97 VARIA NTS references Commen t Ebonie blood JL, Heather gabriel C, Mario whiteside GR et al. CFTR varia nt testi ng: a techn ical stand krystin of the [facility] ge of Medic al Cris ics and Genom ics ([facility] ). Cris Med 22, 6130 (2019 ). PMID: [id number] Can T, Darrick weber SG, Regis houston BA, et al. Cysti c Fibro sis and Conge nital Absen ce of the Vas Defer ens. 2000 [Upda jimi 2016Mar 12]. In: Aidan MP, Nilda huang HH, Aidee RA, et al., shital rs. GeneR augusta stanton(R) [Inte rnet] . PMID: 41750 428 Not Available [facility] ([facility]) [address], [place], [address], 05/27/2023 07:17:25 04/20/19 24 05/26/2023 CYSTI C FIBRO SIS, 97 VARIA NTS director review/relea se Commen t [place] nent Type Perfo rmed At Labor atory Direc tor Techn ical Labor atory Anjen Fortunato , compo nent, Corpo ratio n of , PhD proce critical access hospitalng [facility], [address] [place], [address] Techn ical Labor atory Anjen Fortunato , compo nent, Corpo ratio n of , PhD tiburcio [facility], [address] [place], [address] Profskye valdivia al Labor atory Anjekathy Bucio , compo nent Corpo ratio n of , PhD [facility], [address] [place], [address] Elect jose luz relea sed by Alison Bird, PhD, [facility] Not Available [facility] ([facility]) [address] [place], [address], 05/27/2023 07:17:25 04/20/19 24 05/26/2023 CYSTI C FIBRO SIS, 97 VARIA NTS pdf . Not Available [facility] ([facility]) [address] [place], [address], 05/27/2023 07:17:25 04/20/19 24 04/21/2023 [id number] 9 10 DRUG- BUND amphetamines , urine Negati ve NG/mL cutoff =1000 Amphe tamin e test inclu ivette Amphe tamin e and Metha mphet amine . Not Available [facility] ([facility]) [address] [place], [address], 05/27/2023 07:17:26 04/20/19 24 04/21/2023 [id number] 9 10 DRUG- BUND barbiturates Negati ve NG/mL cutoff =200 Not Available [facility] ([facility]) [address] [place], [address], 05/27/2023 07:17:26 04/20/19 24 04/21/2023 [id number] 9 10 DRUG- BUND benzodiazepi ezequiel Negati ve NG/mL cutoff =200 Not Available [facility] ([facility]) [address] [place], [address], 05/27/2023 07:17:26 04/20/19 24 04/21/2023 [id number] 9 10 DRUG- BUND cannabinoid Negati ve NG/mL cutoff =50 Not Available [facility] ([facility]) [address] [place], [address], 05/27/2023 07:17:26 04/20/19 24 04/21/2023 [id number] 9 10 DRUG- BUND cocaine (metab.) Negati ve NG/mL cutoff =300 Not Available [facility] ([facility]) [address] [place], [address], 05/27/2023 07:17:26 04/20/19 24 04/21/2023 [id number] 9 10 DRUG- BUND methaqualone Negati ve NG/mL cutoff =300 Not Available [facility] ([facility]) [address] [place], [address], 05/27/2023 07:17:26 04/20/19 24 04/21/2023 [id number] 9 10 DRUG- BUND opiates Negati ve NG/mL cutoff =2000 Opiat e test inclu ivette Codei ne and Morph ine only. Not Available [facility] ([facility]) [address] [place], [address], 05/27/2023 07:17:26 04/20/19 24 04/21/2023 17249 9 10 DRUG- BUND phencyclidin e Negati ve NG/mL cutoff =25 Not Available [facility] ([facility]) [address] [place], [address], 05/27/2023 07:17:26 04/20/19 24 04/21/2023 [id number] 9 10 DRUG- BUND methadone screen, urine Negati ve NG/mL cutoff =300 Not Available [facility] ([facility]) [address] [facility], [place], [address], 05/27/2023 07:17:26 04/20/19 24 04/21/2023 [id number] 9 10 DRUG- BUND propoxyphene , urine Negati ve NG/mL cutoff =300 Not Available [facility] ([facility]) [address] [place], [address], 05/27/2023 07:17:26 04/20/19 24 04/21/2023 HCG,B ETA SUBUN IT, QNT HCG,beta subunit,qnt, serum 19321 mIU/m L Femal e (Non- pregn ant) 0 - 5 (Post menop ausal ) 0 - 8 Femal e (Preg nant) Weeks of Gesta tion 3 6 - 71 4 10 - 750 5 707 - 1312 6 516 - 08986 7 0562 -9336 63 8 74992 -7896 71 9 55003 -3123 10 10 53704 -1869 77 12 57571 -2106 12 14 78925 - 96466 15 87759 - 82910 16 8557 - 59876 17 9546 - 96295 18 6966 - 64272 Resul ts confi rmed on dilut ion. Cherie ECLIA metho dolog y Not Available [facility] ([facility]) [address], [place], [address], 05/27/2023 07:17:26 04/20/19 24 04/22/2023 RESUL T result 1 Commen t Mixed uroge nital yonny 10,00 0-25, 000 colon y formi ng units per mL Not Available [facility] ([facility]) [address], [place], [address], 05/27/2023 07:17:27 04/20/19 24 04/21/2023 VARIC TRISTA- ZOSTE R V AB, IGG varicella zoster IgG 1257 index immune >165 Negat matthew <135 Equiv ocal 135 - 165 Posit matthew >165 A posit matthew resul t gener ally indic ates expos ure to the patho gen or admin istra tion of speci fic immun oglob ulins , but it is not indic ation of activ e infec tion or stage of disea se. Not Available [facility] ([facility]) [address], [place], [address], 05/27/2023 07:17:28 04/28/19 24 04/29/2023 HCG,B ETA SUBUN IT, QNT HCG,beta subunit,qnt, serum 510469 mIU/m L Femal e (Non- pregn ant) 0 - 5 (Post menop ausal ) 0 - 8 Femal e (Preg nant) Weeks of Gesta tion 3 6 - 71 4 10 - 750 5 934 - 8558 6 391 - 39228 7 4628 -9630 63 8 20667 -0658 71 9 855640 -2435 10 10 55131 -1965 77 12 28934 -5843 12 14 35834 - 79901 15 85894 - 72884 16 9034 - 73817 17 3253 - 03419 18 4733 - 14356 Resul ts confi rmed on dilut ion. Cherie ECLIA metho dolog y Not Available [facility] ([facility]) [address], [place], [address], 04/29/2023 11:16:50 04/29/19 24 04/29/2023 urina lysis , dipst ick Leukocytes Negati ve Not Available In-Office Order Internal Use Only DO Not Attach Compendium DO Not Attach Compendium, Do Not Delete/merge, 04/29/2023 10:28:11 04/29/19 24 04/29/2023 urina lysis , dipst ick Nitrite negati ve Not Available In-Office Order Internal Use Only DO Not Attach Compendium DO Not Attach Compendium, Do Not Delete/merge, 04/29/2023 10:28:11 04/29/19 24 04/29/2023 urina lysis , dipst ick Urobilinogen .2 Not Available In-Of fice Order Internal Use Only DO Not Attach Compendium DO Not Attach Compendium, Do Not Delete/merge, 04/29/2023 10:28:11 04/29/19 24 04/29/2023 urina lysis , dipst ick Protein Negati ve Not Available In-Office Order Internal Use Only DO Not Attach Compendium DO Not Attach Compendium, Do Not Delete/merge, 04/29/2023 10:28:11 04/29/19 24 04/29/2023 urina lysis , dipst ick pH 6.0 Not Available In-Office Order Internal Use Only DO Not Attach Compendium DO Not Attach Compendium, Do Not Delete/merge, 04/29/2023 10:28:11 04/29/19 24 04/29/2023 urina lysis , dipst ick Blood Negati ve Not Available In-Office Order Internal Use Only DO Not Attach Compendium DO Not Attach Compendium, Do Not Delete/merge, 04/29/2023 10:28:11 04/29/19 24 04/29/2023 urina lysis , dipst ick Specific Lorane 1.030 Not Available In-Off ice Order Internal Use Only DO Not Attach Compendium DO Not Attach Compendium, Do Not Delete/merge, 04/29/2023 10:28:11 04/29/19 24 04/29/2023 urina lysis , dipst ick Ketone Negati ve Not Available In-Office Order Internal Use Only DO Not Attach Compendium DO Not Attach Compendium, Do Not Delete/merge, [id number] 04/29/2023 10:28:11 04/29/19 24 04/29/2023 urina lysis , dipst ick Bilirubin Negati ve Not Available In-Office Order Internal Use Only DO Not Attach Compendium DO Not Attach Compendium, Do Not Delete/merge, [id number] 04/29/2023 10:28:11 04/29/19 24 04/29/2023 urina lysis , dipst ick Glucose Negati ve Not Available In-Office Order Internal Use Only DO Not Attach Compendium DO Not Attach Compendium, Do Not Delete/merge, [id number] 04/29/2023 10:28:11 04/29/19 24 04/29/2023 urina lysis , dipst ick Appearance Clear Not Available In-Offi ce Order Internal Use Only DO Not Attach Compendium DO Not Attach Compendium, Do Not Delete/merge, [id number] 04/29/2023 10:28:11 04/29/19 24 04/29/2023 urina lysis , dipst ick Color Yellow Not Available In-Office Order Internal Use Only DO Not Attach Compendium DO Not Attach Compendium, Do Not Delete/merge, [id number] 04/29/2023 10:28:11 05/06/19 24 05/07/2023 GEST. DIABE SIL 1-HR SCREE N gestational diabetes screen 99 mg/dL 70-139 Accor ding to ADA, a gluco se thres hold of >139 mg/dL after 50-gr am load ident ifies appro ximat peter 80% of women with gesta rubia l diabe sil melli tus, while the sensi tivit y is furth er incre ased to appro ximat peter 90% by a thres hold of >129 mg/dL . Not Available [facility] ([facility]) [address], [place], [address], 05/07/2023 11:15:02 05/06/19 24 05/07/2023 CBC WITH DIFFE RENTI AL/PL ATELE T WBC 5.3 x10e3 /uL 3.4-10 .8 Not Available [facility] ([facility]) [address], [place], [address], 05/07/2023 11:15:03 05/06/19 24 05/07/2023 CBC WITH DIFFE RENTI AL/PL ATELE T RBC 4.42 x10e6 /uL 3.77-5 .28 Not Available [facility] ([facility]) [address], [place], [address], 05/07/2023 11:15:03 05/06/19 24 05/07/2023 CBC WITH DIFFE RENTI AL/PL ATELE T hemoglobin 12.8 g/dL 11.1-1 5.9 Not Available [facility] ([facility]) [address], [place], [address], 05/07/2023 11:15:03 05/06/19 24 05/07/2023 CBC WITH DIFFE RENTI AL/PL ATELE T hematocrit 39.3 % 34.0-4 6.6 Not Available [facility] ([facility]) [address], [place], [address], 05/07/2023 11:15:03 05/06/19 24 05/07/2023 CBC WITH DIFFE RENTI AL/PL ATELE T MCV 89 fL 79-97 Not Available [facility] ([facility]) [address], [place], [address], 05/07/2023 11:15:03 05/06/19 24 05/07/2023 CBC WITH DIFFE RENTI AL/PL ATELE T MCH 29.0 pg 26.6-3 3.0 Not Available [facility] ([facility]) [address] [place], [address], 05/07/2023 11:15:03 05/06/19 24 05/07/2023 CBC WITH DIFFE RENTI AL/PL ATELE T MCHC 32.6 g/dL 31.5-3 5.7 Not Available [facility] ([facility]) [address], [place], [address], 05/07/2023 11:15:03 05/06/19 24 05/07/2023 CBC WITH DIFFE RENTI AL/PL ATELE T RDW 15.1 % 11.7-1 5.4 Not Available [facility] ([facility]) [address], [place], [address], 05/07/2023 11:15:03 05/06/19 24 05/07/2023 CBC WITH DIFFE RENTI AL/PL ATELE T platelets 272 x10e3 /uL 150-45 0 Not Available [facility] ([facility]) [address], [place], [address], 05/07/2023 11:15:03 05/06/19 24 05/07/2023 CBC WITH DIFFE RENTI AL/PL ATELE T neutrophils 65 % notest ab. Not Available [facility] ([facility]) [address], [place], [address], 05/07/2023 11:15:03 05/06/19 24 05/07/2023 CBC WITH DIFFE RENTI AL/PL ATELE T lymphs 27 % notest ab. Not Available [facility] ([facility]) [address], [place], [address], 05/07/2023 11:15:03 05/06/19 24 05/07/2023 CBC WITH DIFFE RENTI AL/PL ATELE T monocytes 8 % notest ab. Not Available [facility] ([facility]) [address], [place], [address], 05/07/2023 11:15:03 05/06/19 24 05/07/2023 CBC WITH DIFFE RENTI AL/PL ATELE T eos 0 % notest ab. Not Available [facility] ([facility]) [address], [place], [address], 05/07/2023 11:15:03 05/06/19 24 05/07/2023 CBC WITH DIFFE RENTI AL/PL ATELE T basos 0 % notest ab. Not Available [facility] ([facility]) [address], [place], [address], 05/07/2023 11:15:03 05/06/19 24 05/07/2023 CBC WITH DIFFE RENTI AL/PL ATELE T neutrophils (absolute) 3.4 x10e3 /uL 1.4-7. 0 Not Available [facility] ([facility]) [address], [place], [address], 05/07/2023 11:15:03 05/06/19 24 05/07/2023 CBC WITH DIFFE RENTI AL/PL ATELE T lymphs (absolute) 1.4 x10e3 /uL 0.7-3. 1 Not Available [facility] ([facility]) [address], [place], [address], 05/07/2023 11:15:03 05/06/19 24 05/07/2023 CBC WITH DIFFE RENTI AL/PL ATELE T monocytes(ab solute) 0.4 x10e3 /uL 0.1-0. 9 Not Available [facility] ([facility]) [address] [place], [address], 05/07/2023 11:15:03 05/06/19 24 05/07/2023 CBC WITH DIFFE RENTI AL/PL ATELE T eos (absolute) 0.0 x10e3 /uL 0.0-0. 4 Not Available [facility] ([facility]) [address], [place], [address], 05/07/2023 11:15:03 05/06/19 24 05/07/2023 CBC WITH DIFFE RENTI AL/PL ATELE T baso (absolute) 0.0 x10e3 /uL 0.0-0. 2 Not Available [facility] ([facility]) [address], [place], [address], 05/07/2023 11:15:03 05/06/19 24 05/07/2023 CBC WITH DIFFE RENTI AL/PL ATELE T immature granulocytes 0 % notest ab. Not Available [facility] ([facility]) [address], [place], [address], 05/07/2023 11:15:03 05/06/19 24 05/07/2023 CBC WITH DIFFE RENTI AL/PL ATELE T immature grans (abs) 0.0 x10e3 /uL 0.0-0. 1 Not Available [facility] ([facility]) [address], [place], [address], 05/07/2023 11:15:03 05/06/19 24 05/07/2023 HCG,B ETA SUBUN IT, QNT HCG,beta subunit,qnt, serum 390321 mIU/m L Femal e (Non- pregn ant) 0 - 5 (Post menop ausal ) 0 - 8 Femal e (Preg nant) Weeks of Gesta tion 3 6 - 71 4 10 - 750 5 217 - 7338 6 158 - 07760 7 0667 -8235 63 8 78056 -6637 71 9 63225 -6874 10 10 75226 -0614 77 12 04203 -8206 12 14 43468 - 37277 15 07190 - 97291 16 1224 - 26368 17 8677 - 61168 18 5164 - 33331 Resul ts confi rmed on dilut ion. Cherie ECLIA metho dolog y Not Available [facility] ([facility]) [address], [place], [address], 05/07/2023 11:15:05 05/19/19 24 05/23/2023 MATER NIT21 PLUS CORE gestation Single ton Not Available [facility] ([facility]) [address], [place], [address], 05/23/2023 16:08:12 05/19/19 24 05/23/2023 MATER NIT21 PLUS CORE fraction 6% Not Available [facility]) [address], [place], [address], 05/23/2023 16:08:12 05/19/19 24 05/23/2023 MATER NIT21 PLUS CORE gestational age > or = 9W: Yes Not Available [facility] ([facility]) [address] [place], [address], 05/23/2023 16:08:12 05/19/19 24 05/23/2023 MATER NIT21 PLUS CORE test result Negati ve Not Available [facility] ([facility]) [address], [place], [address], 05/23/2023 16:08:12 05/19/19 24 05/23/2023 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 Clini alexys corre latio n is doc harding. Not Available [facility] ([facility]) [address] [place], [address], 05/23/2023 16:08:12 05/19/19 24 05/23/2023 MATER NIT21 PLUS CORE approved by Linn zaidi MD, PhD, Dire tor, Seque nom Labor atori es Not Available [facility] ([facility]) [address] [place], [address], 05/23/2023 16:08:12 05/19/19 24 05/23/2023 MATER NIT21 PLUS CORE trisomy 21 (down syndrome) Negati ve Not Available [facility] ([facility] [address] [place], [address], 05/23/2023 16:08:12 05/19/19 24 05/23/2023 MATER NIT21 PLUS CORE trisomy 18 (johnson syndrome) Negati ve Not Available [facility] ([facility]) [address], [place], [address], 05/23/2023 16:08:12 05/19/19 24 05/23/2023 MATER NIT21 PLUS CORE trisomy 13 (patau syndrome) Negati ve Not Available [facility] ([facility]) [address], [place], [address], 05/23/2023 16:08:12 05/19/19 24 05/23/2023 MATER NIT21 PLUS CORE sex Commen t Consi stent with Male Not Available [facility] ([facility]) [address] [place], [address], 05/23/2023 16:08:12 05/19/19 24 05/23/2023 MATER NIT21 PLUS CORE negative predictive value Note The Negat matthew Predi ctive Value (NPV) for triso my 21, 18, and 13 is great er than 99%. The NPV for SCA and ESS canno t be calcu lated as SCA and ESS are only repor jimi when an abnor malit y is detec jimi. Not Available [facility] ([facility]) [address], [place], [address], 05/23/2023 16:08:12 05/19/19 24 05/23/2023 MATER NIT21 PLUS CORE positive predictive value N/A Not Available [facility] [address], [place], [address], 05/23/2023 16:08:12 05/19/19 24 05/23/2023 MATER NIT21 PLUS CORE about the test Commen t The Mater niT(R ) 21 PLUS labor atory -deve loped test (LDT) tiburcio zes circu latin g cell- free DNA from a mater nal blood sampl e. This test is used for scree candace purpo ses and not diagn ostic . Clini alexys corre latio n is recom linda d. Valid ation data on twin pregn ancie s is limit ed and the abili ty of this test to detec t aneup loidy in highe r multi ple gesta tions has not yet been valid ated. Not Available [facility] ([facility]) [address], [place], [address], 05/23/2023 16:08:12 05/19/19 24 05/23/2023 MATER NIT21 PLUS CORE test method Commen t See Notes Circu latin g cell- free DNA was purif ied from the plasm a compo nent of mater nal blood . The extra cted DNA was then conve rted into a [employer] DNA darian ry for aneup loidy tiburcio sis of chrom osome s 21, 18, and 13 via next gener ation seque ncing .[1] Optio nal findi ngs based on the test order inclu de sex chrom osome aneup loidy (SCA) [2], and enhan janelle seque ncing serie s (ESS) [3], which will only be repor jimi on as an addit ional findi ng when an abnor malit y is detec jimi. SCA testi ng inclu ivette infor matio n on X and Y repre senta tion, while ESS testi ng inclu ivette delet ions in selec jimi regio ns (22q, 15q, 11q, 8q, 5p, 4p, 1p) and triso my of chrom osome s 16 and 22. Not Available [facility] ([facility]) [address], [place], [address], 05/23/2023 16:08:12 05/19/19 24 05/23/2023 MATER NIT21 PLUS CORE performance Commen t The perfo rmanc e krysten cteri stics of the Mater niT(R ) 21 PLUS labor atory -deve loped test (LDT) have been deter mined in a clini alexys valid ation study with pregn ant women at incre ased risk for chrom osoma l aneup loidy .[1-4 ] Not Available [facility] ([facility]) [address], [place], [address], 05/23/2023 16:08:12 05/19/19 24 05/23/2023 MATER NIT21 PLUS CORE performance characterist ics Note ----- ----- ----- ----- ----- ----- ----- ----- ----- ----- ----- ---- ! Sex ! Accur acy: 99.4% ! !---- ----- ----- ----- ----- ----- ----- ----- ----- ----- ----- ---! ! Kim n (chandler anaya syndr ome) ! Est. Sens# ! Est. Spec ! !---- ----- ----- ----- ----- ----- ----- ----- ----- ----- ----- ---! ! Bri my 21 (Down Syndr ome) ! 99.1% ! 99.9% ! !---- ----- ----- ----- ----- ----- ----- ----- ----- ----- ----- ---! ! Bri my 18 (Karen rds Syndr ome) ! >99.9 % ! 99.6% ! !---- ----- ----- ----- ----- ----- ----- ----- ----- ----- ----- ---! ! Bri my 13 (Pata u Syndr ome) ! 91.7% ! 99.7% ! !---- ----- ----- ----- ----- ----- ----- ----- ----- ----- ----- ---! ! Sex Chrom osome Aneup roxanne matos## ! 96.2% ! 99.7% ! !---- ----- ----- ----- ----- ----- ----- ----- ----- ----- ----- ---! * As repor jimi in ISCA datab ase nstd3 7 [http s://w regine.nc [email or web address] .[email or web address] .gov/ dbvar /stud ies/n std37 / ] # Estim ated Sensi tivit y. Sensi tivit y estim ated acros s the obser geraldine size distr ibuti on of each syndr ome [per ISCA datab ase nstd3 7] and acros s the range of fract ions obser geraldine in routi ne clini alexys NIPT. Actua l sensi tivit y can also be influ enced by other facto rs such as the size of the event , total seque nce count s, ampli ficat ion bias, or seque nce bias. ## Singl eton gesta tion only. Not Available [facility] ([facility]) [address], [place], [address], 05/23/2023 16:08:12 05/19/19 24 05/23/2023 MATER NIT21 PLUS CORE limitations of the test Commen t While the resul ts of these tests are highl y relia ble, disco rdant resul ts, inclu ding inacc urate sex predi ction , may occur due to place ntal, mater nal, or mosai cism or neopl asm; vanis brandi twin; prior mater nal organ trans plant ; or other cause s. These tests are scree candace tests and not diagn ostic ; they do not repla ce the accur acy and preci hansa of prena hector diagn osis with CVS or amnio cente sis. A patie nt with a posit matthew test resul t shoul d be refer red for cris ic couns eling and offer ed invas matthew prena hector diagn osis for confi rmati on of test resul ts.[5 ] The resul ts of this testi ng, inclu ding the benef its and limit ation s, shoul d be discu ssed with a quali fied healt hcare provi lulu. Pregn cathy manag ement decis ions, inclu ding termi natio n of the pregn cathy, shoul d not be based on the resul ts of these tests alone . The healt hcare provi lulu is respo nsibl e for the use of this infor matio n in the manag ement of their patie nt. Sex chrom osoma l aneup loidi es are not repor table for known multi ple gesta tions . A negat matthew resul t does not ensur e an unaff ected pregn cathy nor does it exclu de the possi bilit y of other chrom osoma l abnor malit ies or defec ts which are not a part of these tests . An uninf ormat matthew resul t may be repor jimi, the cause s of which may inclu de, but are not limit ed to, insuf ficie nt seque ncing cover age, noise or artif acts in the regio n, ampli ficat ion or seque ncing bias, or insuf ficie nt fract ion. These tests are not inten ded to ident beba pregn ancie s at risk for neura l tube defec ts or ventr al wall defec ts. Testi ng for whole chrom osome abnor malit ies (incl uding sex chrom osome s) and for subch romos omal abnor malit ies could lead to the poten tial disco very of both and mater nal genom ic abnor malit ies that could have major , minor , or no, clini alexys signi fican ce. Evalu ating the signi fican ce of a posit matthew or a non-r eport able resul t may invol ve both invas matthew testi ng and addit ional studi es on the mothe r. Such inves tigat ions may lead to a diagn osis of mater nal chrom osoma l or subch romos omal abnor malit ies, which on occas ion may be assoc iated with benig n or malig nant mater nal neopl asms. These tests may not accur ately ident beba tripl oidy, elise janelle rearr angem ents, or the preci se locat ion of subch romos omal dupli catio ns or delet ions; these may be detec jimi by prena hector diagn osis with CVS or amnio cente sis. The abili ty to repor t resul ts may be impac jimi by mater nal BMI, mater nal weigh t, mater nal syste jamir lupus eryth emato yolanda (SLE) and/o r by certa in pharm aceut ical agent s such as low molec ular weigh t hepar in (for examp le: Loven ox(R) , Xapar in(R) , Clexa ne(R) and Fragm in(R) ). Not Available [facility] ([facility]) [address], [place], [address], 05/23/2023 16:08:12 05/19/19 24 05/23/2023 MATER NIT21 PLUS CORE note Commen t See Notes [employer] is a subsi diary of Labor atory Corpo ratio n of joni thomas, using the brand [employer]. This test was devel oped and its perfo rmanc e krysten cteri stics deter mined by [employer]. It has not been clear ed or appro geraldine by the Food and Drug Admin istra tion. This labor atory is certi fied under the Clini alexys Labor atory Impro vemen t Amend ments (CLIA ) as quali fied to perfo rm high compl exity clini alexys labor atory testi ng and accre dited by the Claudette araiza of [facility] can Patho logis ts (CAP) . If there is futur e clini alexys need for addin g Mater niT GENOM E testi ng, this speci men will be avail able until term. [facility] sampl es will not be retai kaylee beyon d 60 days. [facility] patie nts will have to send a new sampl e for re-se quenc ing ([facility] Test Code: 76548 4). Not Available [facility] ([facility]) [address], [place], [address], 05/23/2023 16:08:12 05/19/19 24 05/23/2023 MATER NIT21 PLUS CORE references Commen t 1. Schuyler ARAIZA, et al. Cris Med. 2012; 14(3) :296- 305. 2. Priscilla DIAL, et al. Prena t Diag. 2013; 33(6) :591- 597. 3. Chencho C, et al. Clin Chem. 2015 May;6 1(4): 608-6 16. 4. Schuyler ARAIZA, et al. Cris Med. 2011; 13(11 ):913 -920. 5. ACOG/ SMFM Pract ice Bulle tin No. 226, Nov 2019. Not Available [facility] ([facility]) [address], [place], [address], 05/23/2023 16:08:12 05/19/19 24 05/23/2023 MATER NIT21 PLUS CORE pdf . Not Available [facility] ([facility]) [address], [place], [address], 05/23/2023 16:08:12 05/19/19 24 05/19/2023 urina lysis , dipst ick Leukocytes Negati ve Not Available In-Office Order Internal Use Only DO Not Attach Compendium DO Not Attach Compendium, Do Not Delete/merge, [id number] 05/19/2023 14:26:06 05/19/19 24 05/19/2023 urina lysis , dipst ick Nitrite negati ve Not Available In-Office Order Internal Use Only DO Not Attach Compendium DO Not Attach Compendium, Do Not Delete/merge, [id number] 05/19/2023 14:26:06 05/19/19 24 05/19/2023 urina lysis , dipst ick Urobilinogen .2 Not Available In-Of fice Order Internal Use Only DO Not Attach Compendium DO Not Attach Compendium, Do Not Delete/merge, 05/19/2023 14:26:06 05/19/19 24 05/19/2023 urina lysis , dipst ick Protein Negati ve Not Available In-Office Order Internal Use Only DO Not Attach Compendium DO Not Attach Compendium, Do Not Delete/merge, 05/19/2023 14:26:06 05/19/19 24 05/19/2023 urina lysis , dipst ick pH 6.0 Not Available In-Office Order Internal Use Only DO Not Attach Compendium DO Not Attach Compendium, Do Not Delete/merge, 05/19/2023 14:26:06 05/19/19 24 05/19/2023 urina lysis , dipst ick Blood Negati ve Not Available In-Office Order Internal Use Only DO Not Attach Compendium DO Not Attach Compendium, Do Not Delete/merge, 05/19/2023 14:26:06 05/19/19 24 05/19/2023 urina lysis , dipst ick Specific Lorane 1.025 Not Available In-Off ice Order Internal Use Only DO Not Attach Compendium DO Not Attach Compendium, Do Not Delete/merge, 05/19/2023 14:26:06 05/19/19 24 05/19/2023 urina lysis , dipst ick Ketone Negati ve Not Available In-Office Order Internal Use Only DO Not Attach Compendium DO Not Attach Compendium, Do Not Delete/merge, 05/19/2023 14:26:06 05/19/19 24 05/19/2023 urina lysis , dipst ick Bilirubin Negati ve Not Available In-Office Order Internal Use Only DO Not Attach Compendium DO Not Attach Compendium, Do Not Delete/merge, 05/19/2023 14:26:06 05/19/19 24 05/19/2023 urina lysis , dipst ick Glucose Negati ve Not Available In-Office Order Internal Use Only DO Not Attach Compendium DO Not Attach Compendium, Do Not Delete/merge, 05/19/2023 14:26:06 04/10/05/19/2023 urina lysis , dipst ick Appearance Clear Not Available In-Offi ce Order Internal Use Only DO Not Attach Compendium DO Not Attach Compendium, Do Not Delete/merge, [id number] 05/19/2023 14:26:06 05/19/19 24 05/19/2023 urina lysis , dipst ick Color Yellow Not Available In-Office Order Internal Use Only DO Not Attach Compendium DO Not Attach Compendium, Do Not Delete/merge, [id number] 05/19/2023 14:26:06 05/19/19 24 05/19/2023 US, obste tric, limit ed No observ ation record ed. [email or web address] [facility] [address] [place], [address], 05/19/2023 15:55:21 05/19/19 24 04/23/2023 US, obste tric No observ ation record ed. vita Russ [facility] [address] [place], [address], 05/21/2023 14:44:54 Result Notes None recorded. Problems Name Problem SNOMED Code Status Onset Date Resolution Date Notes Provider Name and Address Organization Details Recorded Time Acute urinary tract infection 156028242 Completed 201901/10/2021 Maria C Bone APN, ARIADNA-C Attn: Nuria g,[address] [place], [address], [facility] - [facility] 1 12:29:09 Chronic back pain 160211385 Active 2019 Maria C Bone APN, SPRING [employer]ATER-C Attn: Accountin g,[address] [place], [address], [place] - [facility] 0 18:16:03 Mixed anxiety and depressive disorder 586064532 Active 2019 Maria C Bone APN, [employer]-C Attn: Accountin g,[address] [place], [address], [place] - [facility] 0 18:22:07 Dysuria 78494879 Active 2020 Deloris Mckeon, RMKevon null, [place] - [place] 1 11:41:46 Obesity 520912779 Active 2020 Maria C Bone APN, [employer]-C Attn: Accountin g,[address] [facility], [place], [address], [facility] - SI 1 12:36:56 Spasm of back muscles 062655058 Active 2020 Maria C Bone APN, [employer]-C Attn: Accountin g,[address] [facility], [place], [address], [facility] - SI 1 12:37:00 Tobacco user 335173011 Active 2020 Maria C Bone APN, [employer]-C Attn: Accountin g,[address] [facility], [place], [address], [facility] - SI 1 12:37:02 Vitamin D deficiency 05184756 Active 2020 Maria C Bone APN, [employer]-C Attn: Accountin g,[address] [facility], [place], [address], [facility] - SI 1 22:45:19 [id number] Completed 202308/11/2023 Homa Kirkland RN null, [place] - [facility] 4 16:50:46 Deliveries by [id number] Active 2023 Homa Kirkland RN null, [place] - [facility] 4 16:50:43 Deliveries by [id number] Completed 2023 Homa Kirkland RN null, [place] - [facility] 4 16:50:43 Advanced maternal age 974935366 Completed Homa Kirkland RN null, [place] - [facility] 4 16:50:43 Problem Notes None recorded. Procedures Surgical History Date Name Laterality Status Provider Name and Address Organization Details Recorded Time 3 total replacement of hip completed Vani Shen MA [place] - [place] 04/20/2023 10:17:54 2 IUD Removal completed Rad Gagnon MD Attn: Accounting,[address] [facility], [place], [address], [facility] - SIF 10/20/2021 17:08:16 1 IUD Replacement completed Rad Gagnon MD Attn: Accounting,[address] [facility], [place], [address], [facility] - [facility] 01/14/2021 14:36:00 1 Date of Last Pap Smear completed Vani Shen MA [place] - [facility] 02/14/2021 09:06:06 Caesarean Section completed MARCIA Santana [place] - [place] 12/25/2019 15:07:43 Imaging Results Imaging Date Name Status LastModified by Organiz ation Details LastModified Time 05/19/2023 US, obstetric, limited completed [email or web address] [facility] [address] [place] [address], [address], 05/19/2023 15:55:21 04/23/2023 US, obstetric completed [facility]ita [facility], [address], 05/21/2023 14:44:54 Procedure Notes None recorded. Medical Equipment None Reported. Allergies No known drug allergies Medications Name Sig Start Date Stop Date Status Note LastModified by Organization Details LastModified Time Prescripti on - Prior Authorizat ion Request active Not Available Not Available Not Available cyclobenza atul 10 mg tablet TAKE 1 TABLET BY MOUTH THREE TIMES DAILY NEEDED 04/19 completed Not Available Not Available Not Available Mirena 21 mcg/24 hr (up to 8 years) 52 mg intrauteri ne device Take 1 device by intraute rine route. 03/08 completed Not Available Not Available Not Available Vitamin B-6 25 mg tablet active Not Available Not Available Not Available aspirin 325 mg tablet 03/08 completed Not Available Not Available Not Available fluconazol e 150 mg tablet TAKE 1 TABLET BY MOUTH EVERY 72 HOURS 04/19 completed Not Available Not Available Not Available hydrocodon e 5 mg-acetami nophen 325 mg tablet TAKE 1 TABLET BY MOUTH THREE TIMES DAILY 03/08 completed Not Available Not Available Not Available prochlorpe razine maleate 5 mg tablet active Not Available Not Available No t Available Effexor XR 37.5 mg capsule,ex tended release Take 1 capsule every day by oral route. 07/24 completed Not Available Not Available Not Available phenazopyr idine 200 mg tablet Take 1 tablet 3 times a day by oral route for 2 days. 01/10 completed Not Available Not Available Not Available metronidaz ole 0.75 % (37.5 mg/5 gram) vaginal gel INSERT 1 APPLICAT ORFUL VAGINALL Y TWICE WEEKLY X 4-6 MONTHS DIRECTED 03/08 completed Not Available Not Available Not Available famotidine 40 mg tablet TAKE 1 TABLET BY MOUTH EVERY DAY active Not Available Not Available No t Available metronidaz ole 500 mg tablet TAKE 1 TABLET BY MOUTH TWICE DAILY UNTIL ALL TAKEN 10/20 completed Not Available Not Available Not Available phentermin e 37.5 mg tablet TAKE 1 TABLET BY MOUTH EVERY DAY 04/19 completed Not Available Not Available Not Available ciprofloxa bao 500 mg tablet 01/10 completed Not Available Not Available Not Available aspirin 81 mg tablet,del ayed release active Not Available Not Available Not Available tramadol 50 mg tablet TAKE 1 TABLET BY MOUTH THREE TIMES DAILY 2023 active Not Available Not Available Not Avai lable alprazolam 0.25 mg tablet TAKE 1 TABLET BY MOUTH EVERY DAY 04/19 completed Not Available Not Available Not Available magnesium oxide 400 mg (241.3 mg magnesium) tablet active Not Available Not Available Not Available docusate sodium 100 mg capsule TAKE ONE CAPSULE BY MOUTH ONCE A DAY active Not Available Not Available No t Available gabapentin 300 mg capsule TAKE 1 CAPSULE BY MOUTH THREE TIMES DAILY 04/19 completed Not Available Not Available Not Available gabapentin 100 mg capsule Take 1 capsule 3 times a day by oral route. 03/26 completed Not Available Not Available Not Available ergocalcif belen (vitamin D2) 1,250 mcg (50,000 unit) capsule TAKE 1 CAPSULE BY MOUTH 1 TIME A WEEK active Not Available Not Available No t Available polyethyle ne glycol 3350 17 gram/dose oral powder TAKE 17 GRAMS BY MOUTH DAILY active Not Available Not Available No t Available naproxen 500 mg tablet TAKE 1 TABLET BY MOUTH TWICE DAILY IN THE MORNING AND IN THE EVENING FOR BACK PAIN 04/19 completed Not Available Not Available Not Available oxycodone 5 mg tablet TAKE 1 TABLET BY MOUTH EVERY DAY FOR PAIN 04/19 completed Not Available Not Available Not Available buprenorph ine HCl 2 mg sublingual tablet active Not Available Not Available Not Available cyclobenza atul 5 mg tablet TAKE 1 TABLET BY MOUTH TWICE DAILY 04/19 completed Not Available Not Available Not Available nitrofuran toin monohydrat e/macrocry stals 100 mg capsule Take 1 capsule every 12 hours by oral route for 5 days. 01/10 completed Not Available Not Available Not Available duloxetine 30 mg capsule,de layed release active Not Available Not Available Not Available duloxetine 60 mg capsule,de layed release active Not Available Not Available Not Available diclofenac sodium 07/24 completed unsure of dose Not Available Not Available Not Available gabapentin 07/24 completed unsure of dose Not Available Not Available Not Available oxycodone 10 mg tablet TAKE 1 TABLET BY MOUTH TWICE DAILY 04/19 completed Not Available Not Available Not Available 28 mg iron-800 mcg tablet Take 1 tablet every day by oral route for 30 days. active Not Available Not Available No t Available Stimulant Laxative Plus 8.6 mg-50 mg tablet TAKE 1 TABLET BY MOUTH TWICE DAILY 04/19 completed Not Available Not Available Not Available naloxone 4 mg/actuati on nasal spray active Not Available Not Available Not Available COVID-19 test specimen collection TEST DIRECTED TODAY 04/19 completed Not Available Not Available Not Available Vitals Date Recorded Body height Body mass index (BMI) Body weight Body temperature Respiratory rate Heart rate Systolic blood pressure Diastolic blood pressure Provider Name and Address Organization Details Last Updated DateTime 2 167.64 cm 33.4 kg/m2 01374.6 2 g 97 [degF] 18 /min 81 /min 139 mm[Hg] 84 mm[Hg] Annette Downing [place] - [facility] 2 10:36:00 Date Recorded Body height Body mass index (BMI) Heart rate Systolic blood pressure Diastolic blood pressure Provider Name and Address Organization Details Last Updated DateTime 04/20/2023 160.02 cm 42.7 kg/m2 86 /min 120 mm[Hg] 81 mm[Hg] Vani Shen MA [facility] 10:10:28 Date Recorded Body weight Provider Name an d Address Organization Details Last Updated DateTime 04/20/2023 773027.11818 g Daniella Arguelles LPN [facility] 2023 11:09:18 Date Recorded Body height Body mass index (BMI) Systolic blood pressure Diastolic blood pressure Provider Name and Address Organization Details Last Updated DateTime 04/29/2023 160.02 cm 42.4 kg/m2 116 mm[Hg] 87 mm[Hg] Margaux Richey MA [facility] 04/29/2023 10:17:42 Date Recorded Body weight Provider Name an d Address Organization Details Last Updated DateTime 04/29/2023 [id number] Mariano Ornelas Attn: Accounting,[address] [place], [address], [facility] 04/29/2023 14:41:30 Date Recorded Body height Body mass index (BMI) Systolic blood pressure Diastolic blood pressure Systolic blood pressure Diastolic blood pressure Provider Name and Address Organization Details Last Updated DateTime 160.02 cm 42.2 kg/m2 144 mm[Hg] 100 mm[Hg] 136 mm[Hg] 87 mm[Hg] Margaux Richey MA [facility] 15:12:17 Date Recorded Body weight Provider Name an d Address Organization Details Last Updated DateTime 05/19/2023 [id number] Mariano Ornelas Attn: Accounting,[address] [place], [address], [facility] 05/19/2023 14:48:27 Social History Question Answer Notes LastModified by Organizat ion Details LastModified Time Tobacco Smoking Status Former Smoker smokes black & mild occacional Not everyday Vani Shen MA null, [facility] 04/20/2023 10:16:56 Do You Have An Advance Directive? No Information not available 11/11/2021 What Is Your Level Of Alcohol Consumption? Occasional Information not available 12/25/2019 Are You Blind Or Do You Have Difficulty Seeing? No Information not available 01/10/2021 Is Blood Transfusion Acceptable In An Emergency? Yes Information not available 04/29/2023 What Is Your Level Of Caffeine Consumption? Moderate Information not available 12/25/2019 How Much Tobacco Do You Chew? None Information not available 12/25/2019 In The 14 Days Before Symptom Onset, Have You Had Close Contact With A Laboratory-confi rmed COVID-19 While That Case Was Ill? No Information not available 12/25/2019 In The 14 Days Before Symptom Onset, Have You Had Close Contact With A Person Who Is Under Investigation For COVID-19 While That Person Was Ill? No Information not available 12/25/2019 Have You Been To An Area Known To Be High Risk For COVID-19? No Information not available 12/25/2019 Are You Currently Employed? Yes Information not available 11/11/2021 Are You Deaf Or Do You Have Serious Difficulty Hearing? No Information not available 01/10/2021 What Type Of Diet Are You Following? REGULAR Information not available 12/25/2019 Do You Or Have You Ever Used E-cigarettes Or Vape? Never Used Electronic Cigarettes Information not available 12/25/2019 Education 12 Information not available 12/25/2019 What Is The Highest Grade Or Level Of School You Have Completed Or The Highest Degree You Have Received? 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 No Information not available 04/29/2023 Are There Any Guns Present In Your Home? No Information not available 11/11/2021 Hard Of Hearing Or Deaf In One Or Both Ears? No Information not available 12/25/2019 Legally Blind In One Or Both Eyes? No Information not available 12/25/2019 Marital Status Informatio n not available 12/25/2019 What Was The Date Of Your Most Recent Tobacco Screening? 05/19/2023 Information not available 05/19/2023 How Many Children Do You Have? 0 Information not available 04/29/2023 What Is Your Current Pack Years? 20-29packyear s Information not available 11/11/2021 Performs Monthly Self-breast Exam? Yes Information not available 12/25/2019 Do You Have Any Pets? No Information not available 04/29/2023 Do You Use Protection During Sex? Usually Information not available 04/29/2023 What Is Your Relationship Status? Single Information not available 01/10/2021 Do You Use Your Seat Belt Or Car Seat Routinely? Yes Information not available 01/10/2021 Are You Sexually Active? Yes Information not available 04/29/2023 Do You Have Smoke And Carbon Monoxide Detectors In Your Home? Yes Information not available 01/10/2021 Are You Passively Exposed To Smoke? No Information not available 01/10/2021 Do You Or Have You Ever Used Smokeless Tobacco? Never Used Smokeless Tobacco Information not available 12/25/2019 General Stress Level High Information not available 12/25/2019 Do You Feel Stressed (tense, Restless, Nervous, Or Anxious, Or Unable To Sleep At Night)? [id number] Information not available 01/10/2021 Do You Use Any Illicit Or Recreational Drugs? No Information not available 01/10/2021 Do You Use Sunscreen Routinely? No Information not available 01/10/2021 Has Tobacco Cessation Counseling Been Provided? No Information not available 11/11/2021 Do You Or Have You Ever Used Any Other Forms Of Tobacco Or Nicotine? No Information not available 01/10/2021 Sex: Female Functional Status Question Answer Note LastModified by Organizat ion Details LastModified Time Are you able to care for yourself? Yes Information not available 01/10/2021 What is your exercise level? Occasional Information not available 12/25/2019 Mental Status None recorded. Family History Relationship Description Onset Age of this Age Resolved Age Notes LastModified by Organization Details LastModified Time Mother Hypertensive disorder [email or web address] Not available 2019 15:04:38 Mother Lupus erythematosu s kyoungma Not available 2019 15:04:46 Mother Malignant tumor of breast kyoungma Not available 2019 15:04:53 Mother Fibromyalgia kyoungma Not avail able 12/25/2019 15:05:03 Maternal Grandmother Heart failure kyoungma Not available 2019 15:05:24 Medical History Condition Response Coronary Artery Disease N Other N High Blood Pressure N Atrial Fibrillation N Thyroid Problems N Kidney or Bladder Problems Y GI Problems N Depression Y COPD N Blood Clots N Skin Problems N Eating Disorder N Anemia N Heart Attack (IA) N Anxiety Disorder Y Diabetes N Muscle, Joint, or Bone Problems Y Seizures/Epilepsy N Acid Reflux (GERD) N Cancer N Stroke N Asthma N Allergies N ADHD N Substance Abuse N High Cholesterol N Hepatitis N Liver Disease N Schizophrenia N Headaches N Heart Failure N Osteoporosis N Gynecological History Statement/Question Response Flow Moderate Date of LMP 01/05/2021 STIs/STDs Y HPV Vaccine N Duration of Flow (days) 3 Age at Menarche 15 Current Control Method Age at First Child 19 Menses Monthly Y Date of Last Pap Smear 07/24/2020 Sexual Problems? N LMP Definite Obstetrics History GPAL:G 5 P 3 0 0 3 Type Value Full Term 3 Living 3 Total 5 Immunizations Vaccine Type Date Status Note Provider Nam e and Address Organization Details Recorded Time COVID-19, mRNA, LNP-S, PF, 30 mcg/0.3 mL dose 1 completed Susan Hermosillo RN null, [place] [facility] 11/12/2020 19:14:31 COVID-19, mRNA, LNP-S, PF, 30 mcg/0.3 mL dose 1 completed Dejah Robert null, [place] [facility] 01/10/2021 14:42:45 Influenza, split virus, quadrivalent, preservative 2 completed Annette Downing [place] null, [place] [facility] 12/30/2021 14:13:02 Past Encounters Encounter ID Performer Location Encounter Start Date Encounter Closed Date Diagnosis/Indication Diagnosis SNOMED-CT Code Diagnosis ICD10 Code Diagnosis Note [id number] MD [facility] (Adult Med) [address] [place] [address] 12/25/2019 09:12:28 12/26/2019 07:35:59 Adult health examination 750570085 Z00.01 Encouraged routine BALLISTICIAN, vision, dental exams, well balanced diet. Acute urin kalpana tract infection 493118048 N39.0 dwp will send abx and get Ua with lab Chronic back pain 285517 002 G89.29 need to have new referral, [facility] mgmt [facility], alos need records sent here Mixed anxi ety and depressive disorder 143494022 F41.8 covid, kids, etc; increased from her baseline; dwp starting effexor R/B/A/SE of antidepres mary medication discussed such as gastrointe stinal s/e, mood irritabili ty, Suicidal ideation, risk of rafael. F/U in 3-4 weeks. Call with concerns and questions. Compliance with medication s and follow up care strongly recommende d. Call 911 or ER for crises. [id number] MD Raghav Gonzalez 14 [address] [facility] [address] [place] [address] 07/24/2020 15:45:09 07/25/2020 12:11:22 Gynecologic examination 23041449 Z01.419 -Educated on the importance of SBE and awareness. -Discussed the importance of cervical cancer screenings -Educated osteoporos is prevention including calcium rich foods, weight bearing exercise.- Discussed the importance of exercise.- Nutrition discussed and the importance of a diet rich in fruits, vegetable, whole grains, and lean proteins.- Counseled regarding prevention of STD's and screening options, condom use and prevention .-Advised avoidance of tobacco, alcohol, and drugs.-Dis cussed sun safety and the importance of sunscreen. Vaginitis 28317510 N76.0 Educated patient on vulvar hygiene and use condoms during sex. swab obtained and sent to lab. Surveillan ce of intrauterine device contraception done 3553604264 87863 Z30.40 Discussed all options. Pt wanting to continue with mirena IUD. Side-effec t profile of Mirena IUD was reviewed with the patient. Patient was informed of the possibilit y of perforatio n, migration, and expulsion of IUD as well as risk of irregular menstrual bleeding or no bleeding, weight changes, breast tenderness and mood changes. Patient was instructed on how to feel for IUD strings. Pt advised to follow up in December for replacemen t of Mirena IUD. Body mass index 30+ - obesity 414692589 Z68.31 Pt educated on importance of lifestyle modificati ons. Pt notified to continue to follow up with PCP. [id number] MD Raghav Gonzalez 14 OB [address] [facility] [address] [place], [place] [address], [place] [address] 09/05/2020 11:22:39 09/06/2020 07:03:54 Dysuria 12237565 R30.9 Pt educated on UTI and treatment. Pt notified to call office if symptoms worsen or if symptoms do not resolve with treatment. Vaginal discharge 105409 006 N89.8 Educated patient on vulvar hygiene and use condoms during sex. swab obtained and sent to lab. [id number] MD Raghav Thurston 14 IM [address] [facility] [address] [address] 11/12/2020 18:35:22 11/19/2020 17:56:56 Administration of SARS-CoV-2 antigen vaccine 164031204 Z23 [id number] MD Manas Gar[facility] (Adult Med) [address] [place] [address] 01/10/2021 12:11:02 01/15/2021 08:46:24 Adult health examination 110833513 Z00.01 Encouraged routine BALLISTICIAN, vision, dental exams, well balanced diet. Chronic back pain 206574 002 G89.29 need to have new referral, [facility], also need records sent here Tobacco user 608818974 Z 72.0 Smoking cessation encouraged . Obesity 461433810 E66.9 advised low fat, low cholestero l diet, regular exercise and weight reduction. Spasm of back muscles 20 6095517 M62.830 prn muscle relaxer, will refill, also check labs [id number] MD Manas Garay (Adult Med) [address] [place] [address] 01/10/2021 12:42:22 01/10/2021 15:35:39 Administration of SARS-CoV-2 antigen vaccine 502086953 Z23 [id number] MD Raghav Gonzalez [address] [place] [address] 01/14/2021 10:06:32 01/15/2021 06:52:51 High risk sexual behavior 110580220 Z72.51 Insertion of intrauterine contraceptive device 74838362 Z30.745 [id number] MD Raghav Gonzalez [address] [place] [address] 03/26/2021 11:21:17 03/27/2021 06:34:03 Vaginal discharge 203243274 N89.8 Recurrent bacterial infection 572276951 A49.9 [id number] MD Raghav Gonzalez [address] [place] [address] 10/20/2021 15:13:54 10/21/2021 08:49:01 At increased risk of urinary tract infection 185839836 Z91.89 Vaginal discharge 139246 006 N89.8 Removal of intrauterine device 03734631 Z30.432 Contracept ion care management 147200208 Z30.9 --Pt does not desire any other form of contracept ion at this time. [id number] Song Choudhury MD [facility] (Adult/Fa m Med) [address] [place] [address] 11/11/2021 10:12:38 11/11/2021 14:10:59 Chronic back pain 100419719 G89.29 old injuryF/U with pain management Mixed anxi ety and depressive disorder 673335158 F41.8 stable Obesity 080367177 E66.9 [facility] Vitamin D deficiency 347 13020 E55.9 Adult [facility] examination 542580176 Z00.00 [id number] Song Choudhury MD [facility] (Adult/Fa m Med) [address] [place] [address] 12/30/2021 14:02:18 01/07/2022 15:00:28 Administration of influenza vaccine 66823082 Z23 [id number] MD Raghav Gonzalez 14 [address] [facility] [address] [place] [address] 04/20/2023 09:49:03 04/21/2023 10:49:02 Routine care 706796281 Z34.90 Deliveries by [id number] O82 --Prior section x 3 Advanced m aternal age 425759339 O09.521 --Co-manag e with MFM Maternal o besity complicating , childbirth and the puerperium, antepartum 0037195380 07 O99.211 Depression screening 171 527755 Z13.31 PHQ9=0 [id number] MD Raghav Gonzalez 14 OB [address] [facility] [address] [place] [address] 04/29/2023 09:55:22 04/30/2023 07:16:46 Routine care 800046977 Z34.90 --pt will RTC to complete DMS and CBC next week Morbid obesity 590626293 E66.01 [id number] MD Raghav Gonzalez 14 OB [address] [facility] [address] [address] 05/19/2023 14:23:05 05/20/2023 09:58:00 Routine care 877251360 Z34.90 Deliveries by [id number] O82 --Prior section x 3 Advanced m aternal age 605768049 O09.521 --Co-manag e with MFM Maternal o besity complicating , childbirth and the puerperium, antepartum 6296680212 07 O99.211 Health Concerns Section Related Observation LastModified by Organization Detai ls LastModified Time None Recorded Concern Status LastModified by Organization Details LastModified Time None Recorded Advance Directives Directive N: Payers Encounter Date Sequence Insurance Name Policy Number Policy Wray Covered Member ID Wray Member ID Guarantor Name 11/11/2021 1 [facility] (MEDICAID REPLACEMENT - HMO) [id number] Tiffany Graff [id number] Tiffany Graff 12/30/2021 1 [facility] (MEDICAID REPLACEMENT - HMO) [id number] Tiffany Graff [id number] Tiffany Graff 04/20/2023 1 [facility] [id number] Tiffany Graff [id number] Tiffany Grfaf 04/29/2023 1 [facility] (MEDICAID HMO) [id number] Tiffany Dajuan [id number] Tiffany Dajuan 05/19/2023 1 [facility] (MEDICAID HMO) [id number] Tiffany Graff [id number] Tiffany Dajuan Notes Date Note Type Note Provider Name and Address Organization Details Recorded Time 11/11/2021 text/html new pt Song Choudhury MD Attn: Accounting,[address] [facility], [place], [address], [place] [facility] 11/11/2021 10:57:10 04/20/2023 text/html See flow sheet. Rad Gagnon MD Attn: Accounting,[address] [facility], [place], [address], [place] [facility] 04/20/2023 13:27:13 04/29/2023 text/html See flow sheet. Rad Gagnon MD Attn: Accounting,[address] [facility], [place], [address], [place] [facility] 04/29/2023 14:43:01 05/19/2023 text/html See flow sheet. Rad Gagnon MD Attn: Accounting,[address] [facility], [place], [address], [place] [facility] 05/19/2023 15:45:07 OBGyn Episode Ob Episode Information Episode Created Date Number of Fetuses Patient Bloodtype Patient rh Status Prepregnancy Weight lbs Domestic Partner Domestic Partner Phone Father Name Analytics Manager Status 04/20/19 24 1 CLOSED Fetus Data First Name Last Name Admitted to NICU Weight (g) Sex Living Outcome Pediatric Complications Fetus ID Race Codes Race Delivery Type 3061.74 6 M Full Term [id number] Meek Calculation Initial Meek Date Initial Exam Date Initial Exam Provider Initial Ultrasound Date Last Menstrual Period Date Ultra Sound Weeks Gestation 0 Eighteen To Twenty Week Meek Update Ultra Sound Date Fundal Height At Umbil Quickening Date Ultra Sound Latest Weeks Gestation Final Meek Confirmed By Final Meek Confirmed Date Final Meek Date Ultra Sound Latest Days Gestation 0 0 Menstrual History Last Menstrual Date Menses Monthly On Bcp Conception Prior Menses Frequency Hcg Plus Date Menarche Onset Age Delivery Information Delivery Date Delivery Type Labor Anesthesia Weeks Gestation Incision Type Labor Labor Length Hrs Delivered By Post Complications Tubal Sterilization Discharge Date Comments 8 [facility] Discharge Information Feeding Method Contraceptive Method Maternal HG B and HCT Levels Ob Episode Information Episode Created Date Number of Fetuses Patient Bloodtype Patient rh Status Prepregnancy Weight lbs Domestic Partner Domestic Partner Phone Father Name Analytics Manager Status 04/20/19 24 1 CLOSED Fetus Data First Name Last Name Admitted to NICU Weight (g) Sex Living Outcome Pediatric Complications Fetus ID Race Codes Race Delivery Type 3175.14 4 M Full Term [id number] Meek Calculation Initial Meek Date Initial Exam Date Initial Exam Provider Initial Ultrasound Date Last Menstrual Period Date Ultra Sound Weeks Gestation 0 Eighteen To Twenty Week Meek Update Ultra Sound Date Fundal Height At Umbil Quickening Date Ultra Sound Latest Weeks Gestation Final Meek Confirmed By Final Meek Confirmed Date Final Meek Date Ultra Sound Latest Days Gestation 0 0 Menstrual History Last Menstrual Date Menses Monthly On Bcp Conception Prior Menses Frequency Hcg Plus Date Menarche Onset Age Delivery Information Delivery Date Delivery Type Labor Anesthesia Weeks Gestation Incision Type Labor Labor Length Hrs Delivered By Post Complications Tubal Sterilization Discharge Date Comments 6 [facility] 38 Discharge Information Feeding Method Contraceptive Method Maternal HG B and HCT Levels Ob Episode Information Episode Created Date Number of Fetuses Patient Bloodtype Patient rh Status Prepregnancy Weight lbs Domestic Partner Domestic Partner Phone Father Name Analytics Manager Status 04/20/19 24 1 A Positive CLOSED Fetus Data First Name Last Name Admitted to NICU Weight (g) Sex Living Outcome Pediatric Complications Fetus ID Race Codes Race Delivery Type [id number] Problems Problem Notes breast/bottle boy cir yes ad vised not to change liter box social assessment done Problem Name Start Date End Date Resolution Snomed Code Not e Deliveries by 04/20/[id number] 004 Advanced maternal age [id number] Meek Calculation Initial Meek Date Initial Exam Date Initial Exam Provider Initial Ultrasound Date Last Menstrual Period Date Ultra Sound Weeks Gestation 11/24/2023 04/20/2023 [email or web address] 04/23/2023 02/17/2023 7 Eighteen To Twenty Week Meek Update Ultra Sound Date Fundal Height At Umbil Quickening Date Ultra Sound Latest Weeks Gestation Final Meek Confirmed By Final Meek Confirmed Date Final Meek Date Ultra Sound Latest Days Gestation 0 [email or web address] 05/21/2023 12/08/19 24 0 Pre-sidney Flowsheet Flowsheet Date 04/20/2023 Reardon Score Blood Edema Fundus Height Fundus Units Glucose Ketones Leukocytes Nitrite Labor Signs Protein Cervic Dilation Cervic Effacement Cervic Station none none 0cm Type Weight in lbs Pre/Post Dialysis Refused With clothes [id number] BP Diastolic BP Location Tested BP Systolic BP Type 81 120 sitting Fetus Heart Rate Present Fetus Movement Comments Patient presents for initial visit. CBE and pap smear performed. Pt has a history of prior x 3. She is currently taking tramadol secondary to hip replacement 5 months ago. Nutritional counseling performed. Will obtain labs and schedule dating sonogram. RTC in 4 weeks. Flowsheet Date 04/29/2023 Reardon Score Blood Edema Fundus Height Fundus Units Glucose Ketones Leukocytes Nitrite Labor Signs Protein Cervic Dilation Cervic Effacement Cervic Station neg none none negative neg Type Weight in lbs Pre/Post Dialysis Refused With clothes [id number] BP Diastolic BP Location Tested BP Systolic BP Type 87 116 sitting Fetus Heart Rate Present Fetus Movement Comments Patient presents as a ER fol low up. She was seen in the ED secondary to feeling shaky after eating an entire bag of grapes and bananas. She denies a history of gestational diabetes in her past pregnancies. Will perform DMS early. Flowsheet Date 05/19/2023 Reardon Score Blood Edema Fundus Height Fundus Units Glucose Ketones Leukocytes Nitrite Labor Signs Protein Cervic Dilation Cervic Effacement Cervic Station neg none none negative none neg Type Weight in lbs Pre/Post Dialysis Refused With clothes [id number] BP Diastolic BP Location Tested BP Systolic BP Type 100 144 sitting 87 136 sitting Fetus Heart Rate Present Fetus Movement Comments Patient denies any complaint s. Pt given instructions to check BP twice daily and RTC in 1 week for BP check. Will continue co-management with MFM for multiple co-morbidities. NIPT testing today. Menstrual History Last Menstrual Date Menses Monthly On Bcp Conception Prior Menses Frequency Hcg Plus Date Menarche Onset Age 0102/17/2023 true false Genetic Screening And Infection History Question Response Note Patient's Age Will Be 35 Yea rs Or Older At Estimated Date of Delivery true Thalassemia (Gabonese, [place]er, Mediterranean, Or Background): MCV < 80 false Neural Tube Defect (Meningom yelocele, Spina Bifida, Or Anencephaly) false Congenital Heart Defect false Down Syndrome false Raulito-Sachs (eg, Druze, Cajun, Thai-Haitian) f alse John Disease false Sickle Cell Disease Or Trait () false Hemophilia Or Other Blood Disorders false Muscular Dystrophy false Cystic Fibrosis false Osito's Chorea false Mental Retardation/Autism false If Yes, Was Person Tested For Fragile X? false Other Inherited Genetic Or Chromosomal Disorder false Maternal Metabolic Disorder (eg, Type 1 Diabetes , PKU) false Patient Or Baby's Father Had A Child With Defects Not Listed Above false Recurrent Loss, Or A Stillbirth false Medications (including Suppl ements, Vitamins, Herbs, OTC Drugs), Illicit/Recreational Drugs, Alcohol true pnv, trama dol If Yes, Agent(s) And Strength/Dosage false Any Other Genetic History false Live With Someone With TB Or Exposed To TB false Patient Or Partner Has History Of Genital Herpes false Rash Or Viral Illness Since Last Menstrual Perio d false History Of STD, Gonorrhea, Chlamydia, HPV, Syphi lis false Other Infection History false History of HIV false History of Hepatitis false Prior GBS-infected child false Delivery Information Delivery Date Delivery Type Labor Anesthesia Weeks Gestation Incision Type Labor Labor Length Hrs Delivered By Post Complications Tubal Sterilization Discharge Date Comments Discharge Information Feeding Method Contraceptive Method Maternal HG B and HCT Levels Ob Episode Information Episode Created Date Number of Fetuses Patient Bloodtype Patient rh Status Prepregnancy Weight lbs Domestic Partner Domestic Partner Phone Father Name Analytics Manager Status 04/20/19 24 1 DELETED Fetus Data First Name Last Name Admitted to NICU Weight (g) Sex Living Outcome Pediatric Complications Fetus ID Race Codes Race Delivery Type [id number] Meek Calculation Initial Meek Date Initial Exam Date Initial Exam Provider Initial Ultrasound Date Last Menstrual Period Date Ultra Sound Weeks Gestation 01/23/2024 04/20/2023 04/18/2023 0 Eighteen To Twenty Week Meek Update Ultra Sound Date Fundal Height At Umbil Quickening Date Ultra Sound Latest Weeks Gestation Final Meek Confirmed By Final Meek Confirmed Date Final Meek Date Ultra Sound Latest Days Gestation 0 01/23/20 24 0 Menstrual History Last Menstrual Date Menses Monthly On Bcp Conception Prior Menses Frequency Hcg Plus Date Menarche Onset Age 0304/18/2023 Delivery Information Delivery Date Delivery Type Labor Anesthesia Weeks Gestation Incision Type Labor Labor Length Hrs Delivered By Post Complications Tubal Sterilization Discharge Date Comments Discharge Information Feeding Method Contraceptive Method Maternal HG B and HCT Levels Ob Episode Information Episode Created Date Number of Fetuses Patient Bloodtype Patient rh Status Prepregnancy Weight lbs Domestic Partner Domestic Partner Phone Father Name Analytics Manager Status 04/20/19 24 1 CLOSED Fetus Data First Name Last Name Admitted to NICU Weight (g) Sex Living Outcome Pediatric Complications Fetus ID Race Codes Race Delivery Type [id number] F Full Term [id number] Meek Calculation Initial Meek Date Initial Exam Date Initial Exam Provider Initial Ultrasound Date Last Menstrual Period Date Ultra Sound Weeks Gestation 0 Eighteen To Twenty Week Meek Update Ultra Sound Date Fundal Height At Umbil Quickening Date Ultra Sound Latest Weeks Gestation Final Meek Confirmed By Final Meek Confirmed Date Final Meek Date Ultra Sound Latest Days Gestation 0 0 Menstrual History Last Menstrual Date Menses Monthly On Bcp Conception Prior Menses Frequency Hcg Plus Date Menarche Onset Age Delivery Information Delivery Date Delivery Type Labor Anesthesia Weeks Gestation Incision Type Labor Labor Length Hrs Delivered By Post Complications Tubal Sterilization Discharge Date Comments 7 Regional-Ep idural 40 Discharge Information Feeding Method Contraceptive Method Maternal HG B and HCT Levels
--- OUTSIDE RECORDS SUMMARY | 2024-06-15 16:28 | XMS_ITS | Encounter Summary ---
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 32.3 - 35.7 g/dL RDW CV 14.7 11.1 - 14.9 % RDW SD 48.3 (H) 35.7 - 48.1 fL NRBC abs 0.00 0.00 - 0.01 K/cumm Basic metabolic panel Collection Time: 11/18/22 8:27 PM Result Value Ref Range Sodium 143 135 - 145 mmol/L Potassium, pl 3.5 3.3 - 4.9 mmol/L Chloride 104 97 - 110 mmol/L CO2 32 22 - 32 mmol/L Anion gap 7 2 - 15 mmol/L BUN 7 6 - 25 mg/dL Creatinine 0.82 0.60 - 1.10 mg/dL Glucose 95 70 - 199 mg/dL Calcium 8.8 8.5 - 10.3 mg/dL eGFR Collection Time: 11/18/22 8:27 PM Result Value Ref Range eGFR >90 90 - 130 mL/min/1.73 m2 Urinalysis reflex to microscopic Collection Time: 11/19/22 6:37 AM Result Value Ref Range Color, ur Straw Yellow Clarity, ur Clear Clear Specific gravity, ur 1.014 1.003 - 1.030 pH, urine 6.0 Protein, ur ql Negative Negative Glucose, ur ql Negative Negative Ketones, ur Negative Negative Bilirubin, ur Negative Negative Blood, ur 2+ (A) Negative Urobilinogen, ur <2.0 <2.0 mg/dL Nitrite, ur Negative Negative Leukocyte esterase, ur Negative Negative UA reflex comment Reflex to microscopic UA will be performed. Urinalysis, microscopic only Collection Time: 11/19/22 6:37 AM Result Value Ref Range WBC, ur 0-5 0 - 5 /HPF RBC, ur 0-2 0 - 2 /HPF Epithelial cells, squamous, ur 1-5 0 - 5 /HPF Bacteria, ur Trace (A) COVID-19 Coronavirus RNA Nasopharyngeal Collection Time: 11/19/22 6:52 AM Specimen: Nasopharyngeal Result Value Ref Range COVID-19 RNA Negative Negative CBC without differential Collection Time: 11/19/22 8:58 PM Result Value Ref Range WBC 5.6 3.8 - 9.9 K/cumm Hgb 8.2 (L) 11.9 - 15.5 g/dL Hct 25.2 (L) 35.6 - 45.5 % Plt 253 150 - 400 K/cumm MPV 10.3 9.1 - 12.3 fL RBC 2.84 (L) 3.90 - 5.20 M/cumm MCV 88.7 81.3 - 96.4 fL MCH 28.9 27.1 - 33.3 pg MCHC 32.5 32.3 - 35.7 g/dL RDW CV 14.2 11.1 - 14.9 % RDW SD 46.2 35.7 - 48.1 fL NRBC abs 0.00 0.00 - 0.01 K/cumm Basic metabolic panel Collection Time: 11/19/22 8:58 PM Result Value Ref Range Sodium 139 135 - 145 mmol/L Potassium, pl 3.7 3.3 - 4.9 mmol/L Chloride 102 97 - 110 mmol/L CO2 31 22 - 32 mmol/L Anion gap 6 2 - 15 mmol/L BUN 11 6 - 25 mg/dL Creatinine 0.74 0.60 - 1.10 mg/dL Glucose 111 70 - 199 mg/dL Calcium 8.8 8.5 - 10.3 mg/dL eGFR Collection Time: 11/19/22 8:58 PM Result Value Ref Range eGFR >90 90 - 130 mL/min/1.73 m2 Prior Functional Status: Mobility status/Ambulation aid/assistive devices: Transfers: Independent Walking: Independent Walking assistive devices used: None Stair negotiation: Independent Falls: Has the patient had 2 or more falls in the past year or any fall with injury in the past year?: No Activities of daily living (ADL) status/ Assistive devices used for ADLs: Dressing: Independent Bathing: Independent Toileting: Independent Bladder: Continent Bowel: Continent Domestic Chores: Independent Driving: Yes Functional limitations: Hearing: Normal Sensory Vision: Normal Cognition: Intact Communication: Normal Nutrition: Normal Occupation: works as [employer] Home Setting: Split level home [facility] Lives With: Spouse; Infant/school age children Exterior Home Access: Steps (4-5 ANNE MARIE) Interior Home Access: Steps (10 to upstairs) Stairs needed to access: Bathroom Current functional status: ADL: OT Functional Mobility: 11/19/22: Min A transfers and bed mobiity (11/20/2022 10:44 AM) OT Self Care: Mod A LE dressing and toileting (11/20/2022 10:44 AM) OT Cognition: wfl (11/20/2022 10:44 AM) OT Communication: wfl (11/20/2022 10:44 AM) Mobility/Transfers: PT Functional Mobility: 11/19/22: Min A ambulation 10ft WW; Min A transfers and bed mobility (11/20/2022 10:44 AM) Cognition/Communication/Swallowing: YARDMASTER Cognition: wfl (11/20/2022 10:44 AM) YARDMASTER Communication: wfl (11/20/2022 10:44 AM) YARDMASTER Swallowing: n/a (11/20/2022 10:44 AM) Conditions requiring acute rehab and risk for complications: Gait dysfunction - risk for falls and further injury, fracture Decreased mobility - Risk for Fall, skin breakdown, further injury, decompensation, muscle flaccidity Balance Issues- Risk for Fall, further injury Treatments needed to address conditions requiring acute rehab: Intense PT/OT/SP, Access to [facility] physicians Alternative Level of Care considered and not appropriate due to: Consult physician oversight, DailyMD oversight, Medication adjustment/oversight, Neurochecks Patient/Caregiver Goals: Patient and Family Goals: to return home at baseline Cosigned by Radha Bedolla MD at 11/20/2022 10:53 AM CDT Associated attestation - Radha Bedolla MD - 11/20/2022 10:53 AM CDT Rehab Referral Decision: Approved I have reviewed this patient Pre-admission Screening Information.The patient is medically stable toparticipate in an inpatient rehabilitation program. In my rehabilitation experience and professional judgement, this patient meets medical necessity criteria and requires an inpatient rehabilitation stay to manage current nursing and medical issues. The patient requires supervision by a rehabilitation physician at least three times a week. The patient requires the Interdisciplinary team approach of an inpatient rehabilitation program. This patient can reasonably expect to participate and benefit from the intensive Inpatient rehabilitation program offered at [facility] . documented in this encounter Plan of Treatment Not on file documented as of this encounter Visit Diagnoses Not on filedocumented in this encounter Care Teams Jewel Bearing Driller Relationship Specialty Start Date End Date Maria C Bone NP [address] [place] [address] [place] [id number] PCP - General Nurse Practitioner 02/13/21 11/24/22 Song Choudhury MD [address] [place] [id number] PCP - General Internal Medicine 11/25/22 11/30/22 Rudy Navarrete MD [address] [place] [id number] PCP - General Family Medicine 12/01/22 documented as of this encounter
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
--- OUTSIDE RECORDS SUMMARY | 2024-06-15 16:28 | XMS_ITS | CONTINUITY OF CARE DOCUMENT ---
Author Name harmeet ga Address Unknown Organization [facility] Address [address] [place] [address] Phone [phone] Care Team Providers Care Logistician Name Role Phone Sebastien Hadley MD Unavailable Sebastien Hadley MD Unavailable [phone] INSURANCE PROVIDERS Payer name Policy type / Coverage type [place] [employer] party ID [place] Medicaid [id number]
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
--- OUTSIDE RECORDS SUMMARY | 2024-06-15 16:28 | XMS_ITS | Clinical Summary ---
Author Organization [facility] Address [address] [place] [address] Care Team Providers Care Park Attendant Name Role Phone Jasvir Perez, ONEL, Artur Quintana Primary Care Provi lulu Source Comments [facility],non-owned Affiliates and Associated Physician Practices is amultiple site organization consisting of ambulatory clinics and hospital sitesin [place], [place], [place] and [place]. This disclosure is being madepursuant to the Care Everywhere program and may not contain all information available regarding this patient. Last updated 17.[facility] Allergies Active Allergy Reactions Criticality Noted Date Comments Kdc:Acetaminophen+Oxycodone+Tartrazine Itching,Rash Medium 12/14/2016 Medications * Be aware that medications may not be up to date on this document. Alwaysverify current medications with the patient. gabapentin (NEURONTIN) 300 MG capsule 11/27/2016 Active ibuprofen (MOTRIN) 800 MG tablet 11/27/2016 Active cyclobenzaprine (FLEXERIL) 10 MG tablet Take 10 mg by mouth 3X/day PRN (Muscle Spasms). 12/14/2016 Active sertraline (ZOLOFT) 100 MG tablet 11/27/2016 Active traMADol (ULTRAM) 50 MG tablet Take 100 mg by mouth every 6 hours as needed for Pain Active albuterol HFA (PROVENTIL;DARLYN MELISSA;PROAIR) 108 (90 Base) MCG/ACT inhaler Inhale 2 puffs by mouth every 4 hours as needed 1 g 07/29/2019 Active Active Problems Problem Noted Date Diagnosed Date Herpes zoster without complication 12/28/2017 Social History Tobacco Use Types Packs/Day Years Used Date Smoking Tobacco: Former Cigarettes Q uit: 02/08/2015 Smokeless Tobacco: Never Alcohol Use Standard Drinks/Week Comments No 0 (1 standard drink = 0.6 oz pur e alcohol) Comments Unknown Sex and Gender Information Value Date Recorded Sex Assigned at Not on file Legal Sex Female 5:16 PM 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 Gender Identity Not on file Sexual Orientation Not on file Last Filed Vital Signs Vital Sign Reading Time Taken Comments Blood Pressure 145/87 07/29/2019 7:08 PM CDT Pulse 82 07/29/2019 7:08 PM CDT Temperature 37.3 C (99.2 F) 07/29/2019 7:08 PM CDT Respiratory Rate 16 07/29/2019 7:08 PM CDT Oxygen Saturation 100% 07/29/2019 7:08 PM CDT Inhaled Oxygen Concentration - - Weight 98 kg (216 lb) 07/29/2019 7:08 PM CDT Height 160 cm (5' 3 ) 07/29/2019 7:08 PM CDT Body Mass Index 38.26 07/29/2019 7:08 PM CDT Plan of Treatment Health Maintenance Due Date Last Done Comments HIV SCREENING 08/28/1999 HEPATITIS C SCREENING 08/23/2002 DTAP/TDAP/TD VACCINES (1 - Tdap) 08/28/2003 HEPATITIS B VACCINE (1 of 3 - 19+ 3-dose series) 08/28/2003 COVID-19 VACCINE ( - 2023-2 5 season) 2023 DEPRESSION SCREENING 02/09/2024 INFLUENZA VACCINE (Season Ended) 2024 ZOSTER VACCINE (1 of 2) 2034 HIB VACCINE Aged Out No longer eligi ble based on patient's age to complete this topic HPV VACCINE Aged Out No longer eligi ble based on patient's age to complete this topic MENINGOCOCCAL (Group B) VACC INE SHARED DECISION-MAKING Aged Out No longer eligibl e based on patient's age to complete this topic MENINGOCOCCAL GROUPS A/C/Y/W VACCINE Aged Out No longer eligible b ased on patient's age to complete this topic PNEUMOCOCCAL VACCINE Aged Out No long er eligible based on patient's age to complete this topic [place] [facility] Care Teams Park Attendant Relationship Specialty Start Date End Date Artur Tay Jr., PROGRAM AND RESEARCH COORDINATOR-SKEIN YARD DRIER PCP - General Nurse Practitioner Family 07/29/19
--- OUTSIDE RECORDS SUMMARY | 2024-06-15 16:28 | XMS_ITS | Clinical Summary ---
Author Organization [facility] Address [address] [place] [address] Care Team Providers Care Fabrication And Layout Craftsman Name Role Phone Tricia Lucero MD Primary Care Provider Unavail able Social History Tobacco Use Types Packs/Day Years Used Date Smoking Tobacco: Never Assessed Comments Unknown Sex and Gender Information Value Date Recorded Sex Assigned at Not on file Legal Sex Female 7:50 PM CDT Gender Identity Not on file Sexual Orientation Not on file Plan of Treatment Health Maintenance Due Date Last Done Comments Annual Physical 08/28/1987 Hepatitis C 2002 DTaP, Tdap and Td Vaccines ( 1 - Tdap) 08/28/2003 Hepatitis B Vaccines (1 of 3 - 19+ 3-dose series) 08/28/2003 COVID-19 Vaccine (2023-2 5 season) 2023 Cervical Cancer Screening Pa p Smear (Age 30 to 64) Every 3 Years 05/15/2024 05/15/2021 Cervical Cancer Screening Pa p with HPV Testing (Age 30 to 64) Every 5 Years 05/15/2026 05/15/2021, 05/15/2021 Cervical Cancer Screening wi th HPV 05/15/2026 HPV Vaccines Aged Out No longer eligi ble based on patient's age to complete this topic Meningococcal B Vaccine Aged Out No l onger eligible based on patient's age to complete this topic Meningococcal Vaccine Aged Out No rudy sal eligible based on patient's age to complete this topic Pneumococcal Vaccine: Pediatrics (0 to 5 Years) and At-Risk Patients (6 to 49 Years) Aged Out No longer eligible b ased on patient's age to complete this topic RSV Immunizations Under 20 Months Aged Out No longer eligible b ased on patient's age to complete this topic Procedures Procedure Name Priority Date/Time Associated Diagnosis Comments HUMAN PAPILLOMAVIRUS, HIGH-RISK TYPES Routine 05/15/2021 12:00 PM CDT CYTOPATH CERV/VAG THIN LAYER Routine 05/15/2021 7:53 AM CDT from Last 3 Months or Most Recently Relevant to Health Maintenance Results * (ABNORMAL) HUMAN PAPILLOMAVIRUS, HIGH-RISK TYPES (05/15/2021 12:00 PM CDT) SPECIMEN CERVICAL/E NDOCERVICA L 05/20/2021 10:03 AM CDT [facility] HPV DNA HIGH RISK POSITIVE(A ) NEGATIVE 05/21/2021 2:39 AM CDT [facility] Comment:SEE CYTOLOGY REPORT 05/15/2021 12:0 0 PM CDT Tricia Lucero MD PATHOLOGY/CYTOLOGY ORDERABLES Final Result [facility] [address] [place] [address], * Cytopath Cerv/Vag Thin Layer (05/15/2021 7:53 AM CDT) THIN PREP PAP [facility] [address] [place] [address] Department of Pathology Pathology Report CERVICAL/VAGINAL PAP SMEAR REPORT Name: TIFFANY LEMUS Age: 7 1985 (Age: 35) Location: [facility] Sex: F Collected Date: 05/15/2021 Hospital #: [id number] Date Received: 05/20/2021 Date Reported: 05/27/2021 Provider: TRICIA LUCERO MD Leonard HODGSON MD INTERPRETATION CERVICAL/ENDOCERVI SHAILA: SATISFACTORY FOR EVALUATION. ENDOCERVICAL/TRANS FORMATION ZONE COMPONENT PRESENT. NEGATIVE FOR INTRAEPITHELIAL LESION OR MALIGNANCY. POSITIVE FOR HIGH RISK HPV. The FDA approved Aptima HPV assay is an in vitro nucleic acid amplification test for the qualitative detection of E6/E7 viral messenger RNA (mRNA) from 14 high-risk types of human papillomavirus (HPV) in cervical specimens. The high-risk HPV types detected by the assay include: 16,18,31,33,35,39, 45,51,52,56,58,59, 66, and 68. RESULTS REFERENCE RANGE HPV 16 RNA NOT DETECTED (NOT DETECTED) HPV 18/45 RNA NOT DETECTED (NOT DETECTED) The FDA approved Aptima HPV 16,18/45 genotype assay is an in vitro nucleic acid amplification test for the qualitative detection of E6/E7 viral messenger RNA (mRNA) of human papillomavirus (HPV) types 16, 18, and 45 in cervical specimens from women with Aptima HPV assay positive results. The Aptima HPV 16, 18/45 genotype assay can differentiate HPV 16 from HPV 18 and/or HPV 45, but does not differentiate between HPV 18 and HPV 45. WARNING: This test is not intended for use in determining the need for treatment (i.e. excisional or ablative treatment of the cervix) in the absence of high-grade cervical intraepithelial neoplasia (JOSÉ LUIS). Women who are HPV 16/18/45 positive should be monitored carefully for the development of high-grade JOSÉ LUIS according to current practice guidelines. The Aptima HPV 16, 18/45 genotype assay is not intended for use as a stand-alone assay. The assay should be performed only as a follow-up to an Aptima HPV assay positive result, and should be interpreted in conjunction with cervical cytology test results. Electronically Signed Out [facility] IFRAH Rich (ASCP) CLINICAL HISTORY Z11.3 PAP AND TALENT ACQUISITION MANAGER SURGICAL HISTORY-UNKNOWN ThinPrep Pap Test with screening HR HPV testing requested, with reflex HPV 16/18 genotyping on negative cytology, positive HR HPV Date of Last Menstrual Period: UNKNOWN Menstrual Status: Regular SPECIMEN SUBMITTED CERVICAL/ENDOCERVI HSAILA Specimen Received:1 Thin Prep Vial, Image Assisted Pap (SMD) Please note: The Pap smear is not a diagnostic test. It is a screening test. Negative results on combined screening (Pap test and HPV-DNA) have a high negative predictive value (99.1-100 percent) for cervical cancer. The pap test is not effective in detecting cervical adenocarcinoma. [facility] 05/15/2021 7:53 AM CDT 05/20/2021 7:53 AM CDT Comment:CERVICAL/ENDOCERVICA L Tricia Lucero MD PATHOLOGY/CYTOLOGY ORDERABLES Final Result [facility] [address] [place] [address], from Last 3 Months or Most Recently Relevant to Health Maintenance Insurance [place] [address] [place] [address] C/O PROVIDER SERVICES [place] [id number] Care Teams Fabrication And Layout Craftsman Relationship Specialty Start Date End Date Tricia Lucero MD PCP - General OBGYN 02/08/21
--- OUTSIDE RECORDS SUMMARY | 2024-06-15 16:28 | XMS_ITS | Encounter Summary ---
Author Organization [facility] Address [address] [place] [address] Care Team Providers Care Senior Applications Architect Name Role Phone Rudy Navarrete MD Primary Care Provider [phone] Encounter Details Date Type Department Care Team (Late st Contact Info) Description 11/04/2023 Documentation Obstetrics and Gynecology Clinic [address] [facility] 3rd Floor [address] [place] [address] Kevon Burt NP [address] [facility] [address] [place] [address] Social History Tobacco Use Types Packs/Day Years Used Date Smoking Tobacco: Never Smokeless Tobacco: Current Comments:Black and Milds Alcohol Use Standard Drinks/Week [...] materials from doctor or pharmacy Never 01/05/2023 [facility] Utilities Answer Date Recorded In the past 12 months has e electric, gas, oil, or water company threatened to [...] Date Recorded PHQ-2 Total Score 2 11/22/2022 [facility] [place] of Occupat ional Health - Occupational Stress [...] the money to buy more. Never true 11/01/19 24 Within the past 12 months, t he food you bought just didn't last and you didn't have money to get more. Never true 11/01/2023 PRAPARE - Transportation Answer Date Re corded [...] place to sleep or slept in a snf (including now)? No 11/22/2022 [place] Depression Scale Answer Date Recorded [place] Depression Scale Total 0 11/08/2023 The thought of harming myself has occurred to me . Never 11/08/2023 Personal Safety Answer Date Recorded Have you ever been in or are you currently in a harmful physical or emotional relationship or is someone making you feel afraid or unsafe? Denies 09/30/2023 Comments Yes Sex and Gender Information Value Date Recorded Sex Assigned at Not on file Legal Sex Female 9:52 AM FINANCE ADVISOR Gender Identity Not on file Sexual Orientation Not on file documented as of this encounter Plan of Treatment Not on file documented as of this encounter Visit Diagnoses Not on filedocumented in this encounter Care Teams Senior Applications Architect Relationship Specialty Start Date End Date Rudy Navarrete MD PCP - General Family Medicine 12/01/22 documented as of this encounter
[2024-06-15 17:18] LABS: Basophils Percent Auto 0.7 % (0.2-1.2); Eosinophils Absolute Auto 0.1 K/mm3 (0-0.3); Eosinophils Percent Auto 1.8 % (0-4.4); Hematocrit 37.6 % (37.0-47.0); Hemoglobin 12.1 g/dL (12.0-15.0); Immature Granulocyte Absolute 0.01 K/mm3 (0.00-0.031); Immature Granulocyte Percent A 0.2 % (0-0.5); Lymphocytes Absolute Auto 2.07 K/mm3 (0.9-3.2); Lymphocytes Percent Auto 47.5 % (18.3-44.2); Mean Corpuscular HGB Conc 32.2 g/dl (32-36); Mean Corpuscular Hemoglobin 28.9 pg (26-34); Mean Corpuscular Volume 89.7 fl (80-100); Monocytes Absolute Auto 0.3 K/mm3 (0.1-0.6); Monocytes Percent Auto 6.9 % (2.6-8.5); Neutrophils Absolute Auto 1.9 K/mm3 (1.3-6.7); Neutrophils Percent Auto 42.9 % (45.5-73.1); Platelet Count Result 253 k/mm3 (150-375); Red Blood Count 4.19 M/mm3 (4.2-5.4); Red Cell Distribution Width 13.5 % (11.5-14.5); White Blood Count 4.4 K/mm3 (4.5-10.0)
[2024-06-15 17:37] LABS: Alanine Aminotransferase 13 U/L (6-35); Albumin Level 4.2 g/dL (3.5-5.1); Alkaline Phosphatase 59 U/L (38-126); Aspartate Amino Transferase 23 U/L (14-36); Blood Urea Nitrogen 9 mg/dL (7-17); Calcium 8.7 mg/dL (8.4-10.2); Carbon Dioxide 29 mmol/L (22-30); Chloride 105 mmol/L (98-107); Estimated Glomerular Filt Rate > 60
[2024-06-15 17:38] LABS: Anion Gap 6 mmol/L (4-12); Bilirubin,Total 0.3 mg/dL (0.2-1.3); Glucose 109 mg/dL (65-110); Sodium 140 mmol/L (137-145)
[2024-06-15 17:41] LABS: Potassium 3.3 mmol/L (3.4-5.0)
[2024-06-15 18:22] LABS: Hemoglobin A1C 5.5 % (<5.7); Hepatitis C Virus Antibody Negative (Negative)
== END 2024-06-15 16:21 | disposition home or self-care (01) ==
LOC: ANHLAB 16:25
PROVIDERS: PCP Family Medicine; Visit Provider Family Medicine
DX: R73.01 Impaired fasting glucose (principal); E66.9 Obesity, unspecified; I10 Essential (primary) hypertension; Z11.59 Encounter for screening for other viral diseases
CPT/HCPCS: 36415; 80053; 83036; 85025; 86803

== ENCOUNTER 2024-10-31 09:34 | Outpatient (CLI) | payer OTHER, SELFPAY ==
--- NOTE | ~2024-10-31 | XR_ITS ---
XR lumbar spine 2-3V Indication: Spondylosis Comparison: None Findings: The vertebral heights are intact. No fracture or subluxation. The disc heights are intact. Soft tissues unremarkable Impression: No acute abnormality. Reviewed, dictated and finalized at location A. Impression: No acute abnormality.
--- NOTE | ~2024-10-31 | XR_ITS ---
XR thoracic spine 2V Indication: Spondylosis Comparison: None Findings: The vertebral heights are intact. No fracture or subluxation. The disc heights are intact. Soft tissues unremarkable Impression: No acute abnormality. Reviewed, dictated and finalized at location A. Impression: No acute abnormality.
--- NOTE | ~2024-10-31 | XR_ITS ---
XR_CERV2-3V_CR Indication: Spondylosis, CHRONIC PAIN Comparison: None Findings: The vertebral heights are intact. No fracture or subluxation. The disc heights are intact. Soft tissues unremarkable Impression: No acute abnormality. Reviewed, dictated and finalized at location A. Impression: No acute abnormality.
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
--- OUTSIDE RECORDS SUMMARY | 2024-10-31 10:19 | XMS_ITS | Clinical Summary ---
Author Organization [facility] [employer] Address [address] [address] Care Team Providers Care Consulting Services Manager Name Role Phone Jasvir Perez, ONEL, Artur Quintana Primary Care Provi lulu Source Comments [facility] [employer],non-owned Affiliates and Associated Physician Practices is amultiple site organization consisting of ambulatory clinics and hospital sitesin [place], [place] and [place]. This disclosure is being madepursuant to the Care Everywhere program and may not contain all information available regarding this patient. 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] patient's age to complete this topic Insurance [place] MEDICAID - [facility] Care Teams Consulting Services Manager Relationship Specialty Start Date End Date Artur Tay Jr., WOOL BROKER-PROCESSING TALC AND BORATE SUPERVISOR PCP - General Nurse Practitioner Family 07/29/19
== END 2024-10-31 09:35 | disposition home or self-care (01) ==
PROVIDERS: PCP Family Medicine; Visit Provider Nurse Practitioner Family
DX: M50.30 Other cervical disc degeneration, unspecified cervical region (principal); M47.814 Spondylosis without myelopathy or radiculopathy, thoracic region; M51.34 Other intervertebral disc degeneration, thoracic region
CPT/HCPCS: 72040; 72070; 72100